=== PATIENT | male | born 1970 | race Caucasian/White ===

== ENCOUNTER 2019-04-25 15:05 | Observation (INO) | payer OTHER ==
--- NOTE | 2019-04-25 16:11 | RAD REPORT ---
EXAM DESCRIPTION: CT - Head Brain Wo Cont - 04/25/2019 3:49 pm CLINICAL HISTORY: Weakness, altered mental status, ataxic gait COMPARISON: June [address] head study is TECHNIQUE: Axial 5 mm thick images of the head were obtained without IV contrast. All CT scans are performed using dose optimization technique as appropriate and may include automated exposure control or mA/KV adjustment according to patient size. FINDINGS: No intracranial hemorrhage, mass, edema or shift of mid-line structures. No cortical edema or sulcal effacement. No acute cortical based infarction. Patient does appear to have some slight lo ss in volume since prior imaging. Ventricles have increased in proportion to this volume loss. No ronak surable chronic ischemic change in the white matter. Cerebellar vermian atrophy pattern is still pres ent. No abnormal extra-axial fluid collections. Mastoid air cells and visualized portions of the paranasal sinuses are clear. No acute bony findings. IMPRESSION: No hemorrhage, acute infarction, mass or other acute intracranial finding. Patient has shown some cerebral volume loss since 2017. Cerebellum vermian atrophy pattern has not pr ogressed. The cerebellar vermian atrophy pattern can be seen with alcohol abuse among other etiologies. Correla tion is needed with history.
[2019-04-25 16:16] LABS: Absolute Lymphocytes (CBC) 1.5 K/uL (0.7-4.9); Basophils % 0.7 % (0-1.3); Hematocrit 38.5 % (39.6-49.0); Lymphocytes % 19.8 % (15.3-44.8); MPV 8.2 fL (7.6-11.3); RBC Red Blood Cell Count 3.96 M/uL (4.33-5.43)
[2019-04-25 16:18] LABS: Protime INR 1.11
--- NOTE | 2019-04-25 16:36 | RAD REPORT ---
EXAM DESCRIPTION: RAD - Chest Single View - 04/25/2019 4:14 pm CLINICAL HISTORY: Dysphagia, history of recent strep diagnosis COMPARISON: June 2017 TECHNIQUE: AP portable chest image was obtained 1607 hour . FINDINGS: No acute lung parenchymal process. Heart and vasculature are normal. No measurable pleural effusion and no pneumothorax. Costochondral calcifications are present. No acute bone process. No ac saxman aortic findings suspected. IMPRESSION: No acute cardiopulmonary process.
[2019-04-25 16:58] LABS: ALT/SGPT 99 U/L (12-78); AST/SGOT 59 U/L (15-37); Albumin 3.6 g/dL (3.4-5.0); Alkaline Phosphatase 81 U/L (45-117); BUN Blood Urea Nitrogen 7 mg/dL (7-18); Bicarbonate 26 mmol/L (21-32); Bilirubin Direct 0.6 mg/dL (0-0.2); Bilirubin Total 1.3 mg/dL (0.2-1.0); Glucose Level 101 mg/dL (74-106); NT PRO-BNP 41 pg/mL (<125); Protein, Total 7.6 g/dL (6.4-8.2); Sodium Level 135 mmol/L (136-145); Troponin (Emerg Dept Use Only) < 0.02 ng/mL (0.0-0.045)
[2019-04-25] MEDS ORDERED: THIAMINE HCL 500 MG in NA CHLORIDE 0.9% 250 ML IV ONE (17:00)
[2019-04-25 17:19] LABS: Potassium 2.8 mmol/L (3.5-5.1)
[2019-04-25] MEDS ORDERED: NS KCL 20MEQ 1,000 ML IV ONE (17:29)
--- NOTE | 2019-04-25 17:40 | RAD REPORT ---
EXAM DESCRIPTION: MRI - Brain Wo Cont - 04/25/2019 5:12 pm CLINICAL HISTORY: ataxia,nystagmus, weakness, history of seizures COMPARISON: CT head April 25, MR brain June 2017 TECHNIQUE: Sagittal T1-weighted images were obtained along with axial PD, heavily T2-weighted and T2 -FLAIR images. Axial DWI and ADC mapping sequences were also obtained along with coronal heavily T2-w eighted images. FINDINGS: No intracranial hemorrhage, mass or acute infarction. There is no edema or shift of midlin e structures. No extra-axial fluid collections. Rodríguez-matter/white matter junction is preserved. Signa l voids are seen as a normal finding in the major intracranial vessels. The patient has cerebellar atrophy primarily in the vermis region. This vermian atrophy pattern is si milar to the comparison. More peripheral aspects of each cerebellar hemisphere show progression in vo lume loss. A vermian atrophy pattern can be seen with excessive alcohol usage. This is only 1 etiolog y. No additional signal abnormality that would indicate excessive alcohol use. Correlation can be mad e with history. Patient does have atrophy change for his age. Ventricles are in proportion. Volume lo ss has progressed since 2017. No brainstem atrophy changes. Mastoid air cells and paranasal sinuses are clear. No globe or orbital content abnormality. No sella or supra sella abnormality. IMPRESSION: No infarction, hemorrhage, mass or other acute intracranial finding. Patient has cerebral and cerebellar atrophy changes, prominent for age, and progressive from 2017. No brainstem atrophy. Cerebellar atrophy is primarily vermian in location. A primarily vermian cerebellar atrophy pattern can be seen with excessive alcohol usage. This is only 1 possible etiology. Correlation is needed wit h history.
--- NOTE | 2019-04-25 18:59 | EDPHYS ---
Physician Documentation [facility] Name: Von Francis Age: 48 yrs Sex: Male : 1970 Arrival Date: 04/25/2019 Time: 15:06 Bed 6 Private MD: John Lema ED Physician Theodore Gonzalez HPI: 04/25 18:58 This 48 yrs old Male presents to ER via Wheelchair with complaints of jr8 Weakness. 18:58 The patient presents to the emergency department with weakness of the a speech or jr8 higher order brain function problem, difficulty standing, difficult walking, a swallowing problem. Onset: The symptoms/episode began/occurred gradually, 3 week(s) ago. Context: occurred at an unknown location. Associated signs and symptoms: The patient has no apparent associated signs or symptoms. Severity of symptoms: At their worst the symptoms were moderate in the emergency department the symptoms are unchanged. Patient's baseline: Neuro: alert and fully oriented, Motor: no deficits, Ambulation: walks without assistance, Speech: normal. Current symptoms: ataxia, dysphagia . The patient has not experienced similar symptoms in the past. The patient has been recently seen by a physician:. Patient with history of chronic alcoholism. Stated that symptoms began as sore throat about 3 weeks ago. Was treated for strep throat with positive culture at that time. Stated that since then has been getting worse. Harder to talk and swallow. Now having ataxia. Came to ED because he is at the point where he can no longer walk. Historical: - Allergies: 15:16 No Known Allergies; tw2 - Home Meds: 15:16 topiramate 50 mg oral CSpX 1 cap once daily [Active]; spironolactone 25 mg Oral tab 1 tw2 tab once daily [Active]; hydralazine 10 mg Oral tab 1 tab 2 times per day [Active]; amlodipine 10 mg tab 1 tab once daily [Active]; levetiracetam 500 mg oral tab 1 tab 2 times per day [Active]; - PMHx: 15:16 Hypertension; Seizures; tw2 - PSHx: 15:16 None; tw2 - Immunization history:: Adult Immunizations. - Social history:: Smoking status: . - Ebola Screening: : Patient denies travel to an Ebola-affected area in the 21 days before illness onset. ROS: 18:58 Eyes: Negative for injury, pain, redness, and discharge, ENT: Negative for injury, jr8 pain, and discharge, Neck: Negative for injury, pain, and swelling, Cardiovascular: Negative for chest pain, palpitations, and edema, Respiratory: Negative for shortness of breath, cough, wheezing, and pleuritic chest pain, Abdomen/GI: Negative for abdominal pain, nausea, vomiting, diarrhea, and constipation, Back: Negative for injury and pain, MS/Extremity: Negative for injury and deformity, Skin: Negative for injury, rash, and discoloration. 18:58 Neuro: Positive for gait disturbance, weakness. Exam: 18:58 Eyes: Pupils equal round and reactive to light, extra-ocular motions intact. Lids and jr8 lashes normal. Conjunctiva and sclera are non-icteric and not injected. Cornea within normal limits. Periorbital areas with no swelling, redness, or edema. ENT: Nares patent. No nasal discharge, no septal abnormalities noted. Tympanic membranes are normal and external auditory canals are clear. Oropharynx with no redness, swelling, or masses, exudates, or evidence of obstruction, uvula midline. Mucous membranes moist. Neck: Trachea midline, no thyromegaly or masses palpated, and no cervical lymphadenopathy. Supple, full range of motion without nuchal rigidity, or vertebral point tenderness. No Meningismus. Cardiovascular: Regular rate and rhythm with a normal S1 and S2. No gallops, murmurs, or rubs. Normal PMI, no JVD. No pulse deficits. Respiratory: Lungs have equal breath sounds bilaterally, clear to auscultation and percussion. No rales, rhonchi or wheezes noted. No increased work of breathing, no retractions or nasal flaring. Abdomen/GI: Soft, non-tender, with normal bowel sounds. No distension or tympany. No guarding or rebound. No evidence of tenderness throughout. Back: No spinal tenderness. No costovertebral tenderness. Full range of motion. Skin: Warm, dry with normal turgor. Normal color with no rashes, no lesions, and no evidence of cellulitis. MS/ Extremity: Pulses equal, no cyanosis. Neurovascular intact. Full, normal range of motion. 18:58 Neuro: Orientation: to person, place, time \T\ situation. Mentation: is normal, Memory: is normal, immediate memory is intact, recent memory is intact, remote memory is intact, Cranial nerves: CN I not tested, CN II- XII are normal as tested, visual rabago are intact. extraocular movements are intact, Facial palsy and sensory deficits are absent. right lateral nystagmus, left lateral nystagmus, Speech is hoarse, slurred, Tongue strength is normal, Cerebellar function: dysmetria is noted on both sides, the patient is unable to track heel to spring on both sides, Motor: moves all fours, strength is 5/5 in all extremities, Sensation: no obvious gross deficits, Gait: ataxic, needs assistance, Deep tendon reflexes are 1 (trace) + in the right bicep and left bicep, 2+ (normal) in the right patellar and left patellar, seizure activity, is not displayed by the patient, Abnormal movements: resting tremor, is located in the right hand and left hand, head. Vital Signs: 15:16 BP 138 / 90; Pulse 93; Resp 17; Temp 98.5(O); Pulse Ox 99% on R/A; Weight 72.57 kg (R); tw2 Pain 0/10; 16:15 BP 132 / 88; Pulse 82; Resp 16; Pulse Ox 98% ; sv 17:30 BP 143 / 89; Pulse 90; Resp 16; Pulse Ox 99% ; sv 18:15 BP 160 / 84; Pulse 93; Resp 17; Pulse Ox 100% ; sv 19:00 BP 134 / 86; Pulse 79; Resp 18; Pulse Ox 98% ; sv 19:30 BP 134 / 86; Pulse 85; Resp 18; Temp 98.2; Pulse Ox 100% on R/A; Pain 0/10; aa1 MDM: 15:18 Patient medically screened. jr8 18:55 Data reviewed: vital signs, nurses notes, lab test result(s), EKG, radiologic studies, jr8 CT scan, MRI, plain films. Data interpreted: Pulse oximetry: on room air is 99 %. Interpretation: normal. Counseling: I had a detailed discussion with the patient and/or guardian regarding: the historical points, exam findings, and any diagnostic results supporting the discharge/admit diagnosis, lab results, radiology results, the need for further work-up and treatment in the hospital. ED course: Consulted Dr. Montano and Cuate. Both accepted and will see patient . 19:06 ED course: Discussed with patient and family that most likely diagnosis at this time jr8 based on history, exam, and imaging is that patient has Wernicke Korsakoff syndrome and will treat as such for now. Will still assess for other acute neurologic process while admitted to hospital. Family and patient happy . 04/25 15:38 Order name: Basic Metabolic Panel; Complete Time: 17:20 04/25 15:38 Order name: CBC with Diff; Complete Time: 16:23 04/25 15:38 Order name: LFT's; Complete Time: 17:20 04/25 15:38 Order name: Magnesium; Complete Time: 17:20 04/25 15:38 Order name: NT PRO-BNP; Complete Time: 17:20 04/25 15:38 Order name: PT-INR; Complete Time: 16:23 04/25 15:38 Order name: Troponin (emerg Dept Use Only); Complete Time: 17:20 04/25 15:38 Order name: XRAY Chest (1 view); Complete Time: 16:46 04/25 15:38 Order name: CT Head Brain wo Cont; Complete Time: 16:23 04/25 16:32 Order name: MRI - Brain Wo Cont; Complete Time: 18:05 04/25 17:42 Order name: ETOH Level; Complete Time: 18:28 04/25 17:49 Order name: KEPPRA (LEVETIRACETAM) EDNY 04/25 15:38 Order name: EKG; Complete Time: 15:39 04/25 15:38 Order name: Cardiac monitoring; Complete Time: 16:06 04/25 15:38 Order name: EKG - Nurse/Tech; Complete Time: 16:06 04/25 15:38 Order name: IV Saline Lock; Complete Time: 16:06 04/25 15:38 Order name: Labs collected and sent; Complete Time: 16:06 04/25 15:38 Order name: O2 Per Protocol; Complete Time: 16:06 04/25 15:38 Order name: O2 Sat Monitoring; Complete Time: 16:06 Administered Medications: 17:19 Drug: Thiamine 500 mg Route: IV; Rate: calculated rate; Site: right forearm; sg 17:40 Follow up: Response: No adverse reaction; IV Status: Completed infusion sg 18:02 Drug: NS 0.9% with KCl 20 mEq/L 1000 ml Route: IV; Rate: 500 ml/hr; Site: right sg antecubital; Disposition: 04/26 06:47 Co-signature as Attending Physician, Theodore Gonzalez MD I agree with the assessment and jessie plan of care. Disposition: 04/25/19 18:58 Hospitalization ordered by Chester Cuello for Inpatient Admission. Preliminary diagnosis is Wernicke's encephalopathy. - Bed requested for Telemetry/MedSurg (Inpatient). - Status is Inpatient Admission. aa1 - Condition is Stable. - Problem is new. - Symptoms are unchanged. UTI on Admission? No Signatures: Dispatcher [employer] EDMS Tana Hollingsworth Steven, RN RN Maryjo Vizcarra RN RN aa Theodore Gonzalez MD MD cha Roszak, Josh, PA PA jr8 Helen Lewis RN RN tw2 Corrections: (The following items were deleted from the chart) 04/25 18:59 18:58 Hospitalization Ordered by Chester Cuello MD for Inpatient Admission. Preliminary bd diagnosis is Wernicke's encephalopathy. Bed requested for Telemetry/MedSurg (Inpatient). Status is Inpatient Admission. Condition is Stable. Problem is new. Symptoms are unchanged. UTI on Admission? No. jr8 20:28 18:59 04/25/2019 18:58 Hospitalization Ordered by Chester Cuello MD for Inpatient aa1 Admission. Preliminary diagnosis is Wernicke's encephalopathy. Bed requested for Telemetry/MedSurg (Inpatient). Status is Inpatient Admission. Condition is Stable. Problem is new. Symptoms are unchanged. UTI on Admission? No. bd
--- NOTE | 2019-04-25 18:59 | ER ---
Nurse's Notes [facility] Name: Von Francis Age: 48 yrs Sex: Male : 1970 Arrival Date: 04/25/2019 Time: 15:06 Bed 6 Private MD: John Lema Diagnosis: Wernicke's encephalopathy Presentation: 04/25 15:12 Presenting complaint: sister states "Dr. Zhang wanted him to come over here today tw2 because he has progressively gotten weaker since he treated him last Wednesday for strep throat, he normally stands and walks with a walker but since last week he has felt weaker and he just cant even stand". Transition of care: patient was not received from another setting of care. Onset of symptoms was April 25, 2019. Risk Assessment: Do you want to hurt yourself or someone else? Patient reports no desire to harm self or others. Initial Sepsis Screen: Does the patient meet any 2 criteria? No. Patient's initial sepsis screen is negative. Does the patient have a suspected source of infection? No. Patient's initial sepsis screen is negative. Care prior to arrival: None. 15:12 Method Of Arrival: Wheelchair tw2 15:12 Acuity: WEI 3 tw2 Triage Assessment: 15:16 General: Appears in no apparent distress. Behavior is calm, cooperative, appropriate tw2 for age. Pain: Denies pain. Historical: - Allergies: 15:16 No Known Allergies; tw2 - Home Meds: 15:16 topiramate 50 mg oral CSpX 1 cap once daily [Active]; spironolactone 25 mg Oral tab 1 tw2 tab once daily [Active]; hydralazine 10 mg Oral tab 1 tab 2 times per day [Active]; amlodipine 10 mg tab 1 tab once daily [Active]; levetiracetam 500 mg oral tab 1 tab 2 times per day [Active]; - PMHx: 15:16 Hypertension; Seizures; tw2 - PSHx: 15:16 None; tw2 - Immunization history:: Adult Immunizations. - Social history:: Smoking status: . - Ebola Screening: : Patient denies travel to an Ebola-affected area in the 21 days before illness onset. Screenin:00 Abuse screen: Denies threats or abuse. Denies injuries from another. Nutritional sg screening: No deficits noted. Tuberculosis screening: No symptoms or risk factors identified. Never had TB. Fall Risk None identified. Assessment: 16:04 General: Appears in no apparent distress. well groomed, well developed, well nourished, sg Behavior is calm, cooperative, appropriate for age. Pain: Denies pain. Neuro: Level of Consciousness is awake, alert, obeys commands, Oriented to person, place, time, situation, Valve Mechanic are equal bilaterally Moves all extremities. Full function Gait is steady, Speech is normal, Facial symmetry appears normal, Pupils are PERRLA, voice is hoarse . Reports weakness pt reports feeling bad. Cardiovascular: Capillary refill is brisk in bilateral fingers Patient's skin is warm and dry. Chest pain is denied. Respiratory: Airway is patent Respiratory effort is even, unlabored, Respiratory pattern is regular, symmetrical. GI: Abdomen is flat, non-distended. : No signs and/or symptoms were reported regarding the genitourinary system. EENT: No signs and/or symptoms were reported regarding the EENT system. Derm: Skin is pink, warm \\T\\ dry. Musculoskeletal: Circulation, motion, and sensation intact. Range of motion: intact in all extremities. 17:16 Reassessment: pt remains off the unit in MRI at this time, family remains in exam room. sg 18:10 Reassessment: Patient appears in no apparent distress at this time. Patient and/or sg family updated on plan of care and expected duration. Pain level reassessed. Patient is alert, oriented x 3, equal unlabored respirations, skin warm/dry/pink. 18:50 Reassessment: Patient appears in no apparent distress at this time. Patient and/or sg family updated on plan of care and expected duration. Pain level reassessed. outside lab contacted, they report a keppra level has been obtained and is pending results, pt updated will continue to monitor. 19:30 Reassessment: Patient appears in no apparent distress at this time. Patient and/or aa1 family updated on plan of care and expected duration. Pain level reassessed. Patient is alert, oriented x 3, equal unlabored respirations, skin warm/dry/pink. Awaiting admission to floor. Denies pain at this time. Resting quietly. 19:55 Reassessment: Patient appears in no apparent distress at this time. Patient is alert, aa1 oriented x 3, equal unlabored respirations, skin warm/dry/pink. Report given to MARIELA Umanzor on 4th floor. Vital Signs: 15:16 BP 138 / 90; Pulse 93; Resp 17; Temp 98.5(O); Pulse Ox 99% on R/A; Weight 72.57 kg (R); tw2 Pain 0/10; 16:15 BP 132 / 88; Pulse 82; Resp 16; Pulse Ox 98% ; sv 17:30 BP 143 / 89; Pulse 90; Resp 16; Pulse Ox 99% ; sv 18:15 BP 160 / 84; Pulse 93; Resp 17; Pulse Ox 100% ; sv 19:00 BP 134 / 86; Pulse 79; Resp 18; Pulse Ox 98% ; sv 19:30 BP 134 / 86; Pulse 85; Resp 18; Temp 98.2; Pulse Ox 100% on R/A; Pain 0/10; aa1 ED Course: 15:06 Patient arrived in ED. mr 15:06 John eLma MD is Private Physician. mr 15:13 Triage completed. tw2 15:14 Markie Ferrer PA is PHCP. jr8 15:14 Theodore Gonzalez MD is Attending Physician. jr8 15:16 Arm band placed on. tw2 15:50 CT Head Brain wo Cont In Process Unspecified. EDMS 16:00 Initial lab(s) drawn, by me, sent to lab. Inserted saline lock: 20 gauge in right sg forearm, using aseptic technique. Blood collected. 16:05 Patient has correct armband on for positive identification. Placed in gown. Bed in low sg position. Side rails up X2. Pulse ox on. NIBP on. Head of bed elevated. 16:13 EKG done, by automated equipment engineer technician. reviewed by Markie PEACOCK. sm3 16:14 XRAY Chest (1 view) In Process Unspecified. EDMS 17:04 MRI - Brain Wo Cont In Process Unspecified. EDMS 17:22 Mendez Corrales, MARIELA is Primary Nurse. sg 17:22 MRI completed. Patient tolerated well. em2 17:25 Patient moved back from MRI. em2 18:18 KEPPRA (LEVETIRACETAM) Sent. hb 18:56 Chester Cuello MD is Hospitalizing Provider. jr8 19:00 Report received from Mendez Corrales RN. aa1 20:28 No provider procedures requiring assistance completed. Patient admitted, IV remains in aa1 place. 20:45 Inserted saline lock: 20 gauge in left antecubital area, using aseptic technique. oe Administered Medications: 17:19 Drug: Thiamine 500 mg Route: IV; Rate: calculated rate; Site: right forearm; sg 17:40 Follow up: Response: No adverse reaction; IV Status: Completed infusion sg 18:02 Drug: NS 0.9% with KCl 20 mEq/L 1000 ml Route: IV; Rate: 500 ml/hr; Site: right sg antecubital; Outcome: 18:58 Decision to Hospitalize by Provider. jr8 20:28 Admitted to Tele accompanied by tech, via wheelchair, room 415, with chart, Report aa1 called to MARIELA Umanzor 20:28 Condition: stable 20:28 Instructed on the need for admit, Demonstrated understanding of instructions. 20:28 Patient left the ED. aa1 Signatures: Dispatcher [employer] EDMS Katy Mills RN RN Mendez Corrales RN RN Maryjo Vizcarra RN RN aa1 Price Isabel Ferrer, Markie, PA PA jr8 Jose Damian 2 Kellie Esquivel RN RN Helen Lewis RN RN 2 Shaka Butler Shakira 3 Corrections: (The following items were deleted from the chart) 19:16 16:04 Neuro: Level of Consciousness is awake, alert, obeys commands, Oriented to sg person, place, time, situation, Valve Mechanic are equal bilaterally Moves all extremities. Full function Gait is steady, Speech is normal, Facial symmetry appears normal, Pupils are PERRLA, Reports weakness pt reports feeling bad sg
[2019-04-25] MEDS: ATORVASTATIN 20 MG TAB PO SCH (21:12)
[2019-04-25] MEDS ORDERED: ONDANSETRON 4 MG/2 ML VIAL IV PRN (21:12)
[2019-04-25] MEDS ORDERED: ACETAMINOPHEN 500 MG TAB PO PRN (21:12)
[2019-04-25] MEDS ORDERED: FLUMAZENIL 0.1 MG/ML (5 mL VIAL) IV PRN (21:12)
[2019-04-25 22:02] VITALS: BMI 23.8
[2019-04-25] MEDS: KCL 20 MEQ/100 mL IVPB 20 MEQ/100 ML BAG IV SCH (22:21)
[2019-04-25] MEDS: NA CHLORIDE 0.9% 1,000 ML IV SCH (22:21)
[2019-04-25 22:47] LABS: Urine Appearance TURBID; Urine Bilirubin NEGATIVE (NEG); Urine Blood NEGATIVE (NEG); Urine Color YELLOW; Urine Glucose NEGATIVE (NEG); Urine Protein NEGATIVE (NEG)
[2019-04-25 23:22] LABS: Urine Microscopic Reflex ORDER UMIC
[2019-04-25 23:23] LABS: Urine Amorphous Sediment 4+ /HPF (NONE SEEN); Urine Bacteria <20 /HPF (NONE SEEN); Urine Culture Reflex Order NOT NEEDED; Urine RBC NONE SEEN /HPF (NONE SEEN)
[2019-04-26] MEDS: KCL 20 MEQ/100 mL IVPB 20 MEQ/100 ML BAG IV SCH ×3 (01:05→08:15)
--- NOTE | 2019-04-26 04:03 | HP ---
Date of Admission: 04/25/2019 Chief Complaint: Ataxia. Primary Care Physician: Dr. Causey. Consultants: Dr. Montano with Neurology. History Of Present Illness: Patient is a 48-year-old male with past medical history of hypertension, hyperlipidemia, seizure disorder, chronic alcohol abuse , who has been becoming progressively weak and ataxic along with worsening tremors. Patient continues to drink. Last drink was yesterday. He had a mixed drink. Patient states that since he was diagnosed with strep throat took antibiotics, he has been progressively worsening. He is unable to walk using a walker due to his severe ataxia. Patient's symptoms are constant, moderate, progressively worsening. In the ER, his workup revealed a low potassium level of 2.8. His liver function was abnormal. White blood cell count was normal. His alcohol level was less than 3. CT scan of the head and MRI of the brain showed severe atrophy of the cerebellum in the vermian location consistent with excessive alcohol usage. No acute stroke was seen. ER contacted Dr. Montano, who recommended further observation and treatment. When seen in the ER, he was awake, alert, oriented, in some mild distress. Past Medical History: Hypertension, hyperlipidemia, seizure disorder, and chronic alcohol use. Past Surgical History: None. Allergies: NO KNOWN DRUG ALLERGIES. Medications: List reviewed. Patient takes topiramate, hydralazine, amlodipine , and Keppra. Social History: Patient smokes every now and then, not a daily smoker. Patient drinks mixed drinks daily. Last drink was last night. No illicit drug use. Lives at home by himself. Does require a walker for ambulation. Family History: Mother had heart disease, diabetes, and kidney disease. Review of Systems: Nine point system reviewed, negative except as per HPI. Physical Examination: Vital Signs: Stable. Afebrile. GENERAL: Awake, alert, oriented x3, in some mild distress, ill-appearing male, tremulous. HEENT: Normocephalic, atraumatic. PERRLA. EOMI. Moist mucous membranes. Oropharynx is clear. Conjunctivae are anicteric. Patient does have nystagmus. CV: S1, S2. Regular rate and rhythm. Peripheral pulses present. RESPIRATORY: Moving air well bilaterally. No wheezing or stridor. No use of accessory muscles. GASTROINTESTINAL: Abdomen is soft, nontender, nondistended. Positive bowel sounds. Extremities: No clubbing, cyanosis, or edema. No calf tenderness. NEURO: Cranial nerves 3 through 12 intact grossly. No focal neurological deficit. Strength is 5/5 bilateral upper and lower extremities. Sensation intact to light touch. Patient does have an ataxia. Omubnl-wo-cgfs is abnormal. Vfwp-yp-ghze is able to be completed; however, has severe tremors. Skin: No rashes. Patient does have some abrasions on the left lower extremity. Laboratory Data: Alcohol level less than 3. Sodium 135, potassium 2.8, chloride 101, CO2 of 26, BUN 7, creatinine 0.83, glucose 101, calcium 9.3, magnesium 2. Total bilirubin 1.3, AST 59, ALT 99. Troponin less than 0.02. INR 1.11. WBC 7.7, H and H 13.5 and 38.5, platelets 216, neutrophils 67%. Imaging Studies: Chest x-ray personally reviewed shows no acute cardiopulmonary process. Head CT scan shows no hemorrhage, acute infarction, mass, or other acute intracranial finding. Has cerebral volume loss since 2017 , cerebellum vermian atrophy pattern has not progressed. MRI of the brain shows no infarction, hemorrhage, mass, or acute intracranial finding. Patient has cerebral and cerebellar atrophy prominent for age and progressive from 2017. No brainstem atrophy. Assessment And Plan: 48-year-old male with: 1. Ataxia, rule out cerebrovascular accident. MRI of the brain does not show any acute stroke. 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 We will place on bedrest, fall precautions, and seizure precautions. Dr. Montano with Neurology has been consulted. We will start on stroke guidelines aspirin, statin. Obtain carotid artery ultrasound and echocardiogram. Patient not at baseline per family. 2. Alcohol dependence. We will place on Ativan p.r.n., use [facility] protocol for monitoring symptoms. We will start on banana bag with thiamine and folate. 3. Essential hypertension. We will resume home medications as appropriate. 4. Mixed hyperlipidemia. Continue statin. 5. History of seizure disorder. We will place on seizure precautions. Check Keppra level. 6. Nicotine dependence with cigarette smoking, counseled. Plan: Admit patient to Med-Surg, place as observation. Patient will need placement. We will consult social work. SA/MODL Voice ID: [id number] MTDD
[2019-04-26 04:37] LABS: Absolute Lymphocytes (CBC) 1.5 K/uL (0.7-4.9); Basophils % 0.4 % (0-1.3); Lymphocytes % 22.5 % (15.3-44.8); MPV 8.5 fL (7.6-11.3); RBC Red Blood Cell Count 3.68 M/uL (4.33-5.43)
[2019-04-26 05:07] LABS: ALT/SGPT 75 U/L (12-78); AST/SGOT 40 U/L (15-37); Alkaline Phosphatase 70 U/L (45-117); BUN Blood Urea Nitrogen 7 mg/dL (7-18); Bicarbonate 24 mmol/L (21-32); Bilirubin Total 1.3 mg/dL (0.2-1.0); Glucose Level 88 mg/dL (74-106); Magnesium 1.9 mg/dL (1.8-2.4); Phosphorus 2.1 mg/dL (2.5-4.9); Potassium 3.1 mmol/L (3.5-5.1); Protein, Total 6.4 g/dL (6.4-8.2); Sodium Level 138 mmol/L (136-145)
--- NOTE | 2019-04-26 06:53 | EKG ---
Test Date: 2019-04-25 Test Time: 15:56:43 Auto Electrician: PRICILA MEASUREMENT RESULTS: Intervals: Rate: 86 NH: 122 QRSD: 92 QT: 406 QTc: 485 [place]: P: 60 NH: 122 QRS: 60 T: 8 INTERPRETIVE STATEMENTS: Normal sinus rhythm ST & T wave abnormality, consider inferior ischemia Abnormal ECG Compared to ECG 08/18/2015 20:19:06 ST (T wave) deviation now present Possible ischemia now present Sinus tachycardia no longer present T-wave abnormality no longer present Electronically Signed On 04-26-19 06:53:07 CDT by Lb Bocanegra
[2019-04-26] MEDS: ASPIRIN EC 81 MG TAB PO SCH (08:15)
[2019-04-26] MEDS: ENOXAPARIN 40 MG/0.4 ML SQ SCH (08:15)
--- NOTE | 2019-04-26 08:41 | RAD REPORT ---
EXAM DESCRIPTION: USCarotid Artery Ysshrfdgf47/15/2019 10:22 pm CLINICAL HISTORY: CVA COMPARISON: None FINDINGS: The velocity of the right internal carotid artery equals 61 cm/sec. The right ICA/CCA rati o 1 The velocity of the left internal carotid artery equals 59 cm/sec. The left ICA/CCA ratio 0.8 Plaque is not visualized within the carotid arteries The vertebral arteries demonstrate antegrade flow IMPRESSION: Unremarkable exam NASCET criteria used. Mild 0-49% stenosis Moderate 50-69% stenosis Severe 70-99% stenosis
[2019-04-26] MEDS: FOLIC ACID 1 MG, MULTIVITAMINS INJ 10 ML, THIAMINE HCL 100 MG in NA CHLORIDE 0.9% 1,000 ML IV SCH (09:45)
[2019-04-26] MEDS: levETIRAcetam 500 MG TAB PO SCH ×3 (09:46→21:10)
[2019-04-26] MEDS: NA CHLORIDE 0.9% 1,000 ML IV SCH ×2 (10:32→21:08)
[2019-04-26] MEDS: HYDRALAZINE HCL 10 MG TABLET PO SCH ×2 (13:47→21:10)
--- NOTE | 2019-04-26 18:53 | PN ---
Date of Progress Note: 04/26/2019 Subjective: Patient is seen and examined. Chart reviewed and case discussed with RN and Dr. Montano. The patient still having tremors, is ataxic. Medications list reviewed. Physical Examination: Vital Signs: Temperature 97.6, heart rate 77, blood pressure 124/73, respirations 18, O2 99% on room air. General: Awake, alert, oriented x3. No acute distress. CV: S1, S2. Regular rate and rhythm. Peripheral pulses present. Respiratory: Moving air well bilaterally. No wheezing or stridor. Gastrointestinal: Abdomen is soft, nontender, nondistended. Positive bowel sounds. Extremities: No clubbing, cyanosis, or edema. Neuro: Strength is symmetric in bilateral upper and lower extremities. The patient has difficulty with hzrkqt-vu-oyma. Has resting tremors. Skin: No rashes. Normal skin turgor. Laboratory Data: Sodium 138, potassium 3.1, chloride 107, CO2 24, BUN 7, creatinine 0.74, glucose 88, calcium 8.3, phosphorus 2.1, magnesium 1.9. WBC 6.5, H and H 12.6 and 36, platelets 195, neutrophils 64%. Carotid artery ultrasound shows no significant plaque, unremarkable exam. Assessment And Plan: 1. A 48-year-old male with ataxia, cerebrovascular accident has been ruled out. MRI of the brain is negative for acute stroke. He does have significant cerebellar and cerebral atrophy related to Wernicke-Korsakoff syndrome. I spoke with Dr. Montano, who recommends continuing multivitamins. Patient will need physical therapy and to be taught to transfer to wheelchair, not stable for ambulation. Continue with fall precautions and seizure precautions. Carotid artery ultrasound is negative. Echocardiogram is pending. 2. Alcohol dependence. Continue with Ativan p.r.n. We will monitor for signs of withdrawal using CIWA protocol. Continue with multivitamins including thiamine and folate. 3. Essential hypertension, stable. Continue home medications. 4. Mixed hyperlipidemia. Continue statin. 5. History of seizure disorder. Continue Keppra. Keppra level is still pending as a send out lab. 6. Nicotine dependence with cigarette smoking, counseled. Plan: Discharge planning, we will contact family. Unclear how accurate patient 's statements are due to confabulation as part of Wernicke-Korsakoff syndrome. This is irreversible. This will be patient's chronic state going forward. He will need assistance with activities of daily living and getting around, will likely need a wheelchair or walker. We will have PT and speech therapy evaluation, occupation therapy evaluation. ADDENDUM 13:48 Spoke at length with sister and mother. Thoroughly explained disease process, the irreversibility of it and plan going forward beginning with etoh cessation. Family and pt initially willing to go thru detox and then physical therapy and rehab. They do not want him to go to a facility out of town. Sister states she will take care of him at her house as she has done so in the past. /RAFFY Voice ID: [id number] Report ID: [id number] MTDD
[2019-04-26] MEDS ORDERED: POTASSIUM CL SA 10 MEQ TAB PO ONE (21:00)
[2019-04-26] MEDS: ATORVASTATIN 20 MG TAB PO SCH (21:10)
[2019-04-26] MEDS: TOPIRAMATE 25 MG TAB PO SCH (21:10)
--- NOTE | 2019-04-27 02:04 | CON ---
Reason For Consultation: Consultation called because of Wernicke encephalopathy and Korsakoff psycho sis. History Of Present Illness: Mr. Francis is a 48-year-old patient with history of multiple medical pr oblems including hypertension, dyslipidemia, epilepsy, and long-standing chronic alcohol abuse and pe r the patient with episodes of alcohol withdrawal seizures several years ago. The patient admits to drinking perhaps 18 up to 20 beers on a daily basis and has had progressive loss of gait and balance coordination and was forced to use a walker due to his unsteady gait. It is unclear why the patient actually came in more recently because he has had a progressive loss of strength and incoordination m uch longer than a few weeks likely to the extent of the years. In any event, he is unable to ambulat e with a walker and has a very high risk of falling because of very unsteady gait. His imaging of th e brain identified vermian cerebellar atrophy in addition to cerebellar hemispheric atrophy that is o ut of proportion to atrophy in the rest of the brain. However, it should be noted that while the pat ient did have the CT scan showing the prominence of atrophy, the radiologist did not believe it was m uch more significant compared to 2017 but that the cerebral volume loss had progressed since 2017, an d the pattern again was consistent with chronic alcohol use. His brain MRI also showed significant c erebellar vermian atrophy again consistent with chronic alcohol use and it should be noted that the a trophy in the cerebellum and cerebrum were felt to be progressive from 2017 and there was no signific ant change in brainstem atrophy. There was no acute ischemic or hemorrhagic change. The study did n ot comment on potential mammillary body volume loss. Past Medical History: As indicated. Past Surgical History: None. Allergies: NO KNOWN DRUG ALLERGIES. Current Medications: At home, Keppra, amlodipine, hydralazine, and topiramate. Social History: Patient again drinks up to potentially 16 to 18 beers on a daily basis and does smok e cigarettes. Denies IV drugs and marijuana. He still lives alone but ambulates with a walker and i s very unsteady. Family History: Positive for diabetes and kidney disease in mother. Review of Systems: He admits to the issues with his balance, coordination, and gait for many years. Denies any recent f naima or chills, any myalgias, arthralgias, rash, headache, weight change, or psychiatric complaints. Physical Examination: Vital Signs: Blood pressure 137/81, pulse 83, respiratory rate 16, temperature 97.6, oxygen saturati on 95% on room air, weight 161 pounds, height 5 feet 9 inches. General: Mr. Francis is resting in bed. HEENT: He is normocephalic, atraumatic. Neurologic: He does have a head titubation-type tremor and a flexion-extension tremor in the upper e xtremities. He does not have any at rest nystagmus and his face is symmetric. His cranial nerves do not show any focal deficits. Motor examination of upper extremities show no focal weakness on the l eft or right side on both upper and lower extremities. Sensory examination reveals a stocking-glove loss to light touch and temperature. Reflexes are symmetric in upper and lower extremities. Coordin ation: He has mild dysmetria in the upper and lower extremities and in the lower extremity in terms of czrzhw-xr-gdmq and xsje-mr-mcnb. His gait is very wide based and ataxic. It should be noted that the patient reports having a tremor that has been present most of his life and that tremor is signif icantly improved using alcohol. He reports that this is part of the reason why he actually has been drinking alcohol heavily. Laboratory Studies: Complete blood count with differential essentially unremarkable. White blood ce ll count 6.5, hemoglobin 12.6, hematocrit 36, platelets are 105. Coagulation panel show INR 1.1. Ch emistries are initially remarkable for potassium of 2.8, now corrected at 3.5. Sodium is now 138. L iver function studies show elevated AST 59, ALT 99, alkaline phosphatase 81, and his total bilirubin 1.3. Urinalysis shows 4+ amorphous sediment. Toxicology shows serum alcohol level is less than 3. Carotid artery ultrasound shows an unremarkable study. Assessment: Mr. Francis is a 48-year-old patient who had Korsakoff syndrome and likely has low tali ine level, longstanding. He also has marked vermian cerebellar atrophy consistent with very long his tory of heavy alcohol use and a very ataxic gait. Plan: 1.The patient should be on high-dose thiamine and folic acid. However, it is unlikely to help him r ecover his lost coordination, balance, and gait. He will have axial instability lifelong. 2.He should be in an alcohol treatment program. This is for assistance with cessation. 3.He is to continue on Keppra. His history of seizures likely is related to alcohol withdrawal and an EEG may be helpful in characterizing the nature of his epilepsy. 4.He was counseled on the importance of stopping cigarettes and alcohol use. Once discharged, tamara lovelace should be in a facility where he can get therapy to assist with his balance and coordination and h is use of a walker, again in a facility that can help with his alcohol cessation. DIANA Voice ID: [id number] Report ID: [id number]
[2019-04-27 06:13] LABS: BUN Blood Urea Nitrogen 5 mg/dL (7-18); Bicarbonate 22 mmol/L (21-32); Glucose Level 93 mg/dL (74-106); Potassium 3.6 mmol/L (3.5-5.1); Sodium Level 141 mmol/L (136-145)
[2019-04-27] MEDS: NA CHLORIDE 0.9% 1,000 ML IV SCH (06:38)
[2019-04-27] MEDS ORDERED: POTASSIUM CL SA 10 MEQ TAB PO ONE (08:00)
[2019-04-27] MEDS: ENOXAPARIN 40 MG/0.4 ML SQ SCH (08:27)
[2019-04-27] MEDS: HYDRALAZINE HCL 10 MG TABLET PO SCH (08:28)
[2019-04-27] MEDS: levETIRAcetam 500 MG TAB PO SCH (08:29)
[2019-04-27] MEDS: ASPIRIN EC 81 MG TAB PO SCH (08:29)
[2019-04-27] MEDS: TOPIRAMATE 25 MG TAB PO SCH (08:29)
[2019-04-27] MEDS ORDERED: SPIRONOLACTONE 25 MG TABLET PO SCH (09:00)
[2019-04-27] MEDS ORDERED: AMLODIPINE 10 MG TAB PO SCH (09:00)
[2019-04-27 09:24] VITALS: O2SAT 99
[2019-04-27] MEDS: FOLIC ACID 1 MG, MULTIVITAMINS INJ 10 ML, THIAMINE HCL 100 MG in NA CHLORIDE 0.9% 1,000 ML IV SCH (09:34)
[2019-04-27 12:16] VITALS: BP 126/56; TEMP 97.6
--- NOTE | 2019-04-28 10:05 | DS ---
Date of Discharge: 04/27/2019 Consultants: Dr. Montano with Neurology. Admitting Diagnoses: 1.Ataxia. 2.Alcohol dependence. 3.Essential hypertension. 4.Mixed hyperlipidemia. 5.History of seizure disorder. 6.Nicotine dependence with cigarette smoking. Discharge Diagnoses: 1.Wernicke-Korsakoff syndrome. 2.Ataxia secondary to above. Cerebrovascular accident ruled out. 3.Alcohol dependence, counseled. Patient refuses detox and rehab. 4.Essential hypertension, stable. 5.Mixed hyperlipidemia, stable. 6.History of seizure disorder, stable on Keppra. 7.Nicotine dependence with cigarette smoking continuous without complications counseled. 8.Hoarseness. Hospital Course: Patient is a 48-year-old male with past medical history of hypertension, hyperlipid emia, seizure disorder, chronic alcohol use for several years, becoming progressively weak and ataxic along with hoarse voice. Patient has a longstanding history of drinking heavily, also has resting t remor. Patient has been progressively worse with his ataxia recently in the past couple of weeks, th erefore was brought into the ER. He was started on IV fluids with multivitamins. His CT scan of the head showed severe atrophy of the cerebellum and cerebrum. MRI of the brain was done to rule out CV A, showed severe atrophy in the cerebellum in the vermian location consistent with excessive alcohol usage. No comment was made on the mammillary bodies. No stroke was seen. Dr. Montano with Neurolo gy was consulted. The patient worked with PT. He was able to ambulate with a walker. I had a long discussion with his sister and his mother as well as the patient regarding cessation of alcohol and t obacco use. They voiced understanding. Initially, patient was receptive to going to alcohol detox a nd rehab however later declined as this is voluntary. This is on a voluntary basis. Patient was als o given option of going to [facility] for physical therapy, however, per family and patient did not wa nt to be away from the local area. The patient states he has done physical therapy at home previousl y and has the equipment. We will try to set up home health with PT for patient. Family and the kristal ent understand that his symptoms are permanent and that he will have lifelong axial instability. Pat ient will also need continued physical therapy and occupational therapy to help him assist to adjust his status. Patient will also need to follow up with ENT as an outpatient for his hoarseness of his voice. May have possible laryngeal cancer due to his chronic alcohol use. Patient was then discharg ed to his sister's home as he is no longer safe to go home by himself and also refused physical thera py, SNF placement. Condition fair. Medications: As per medication reconciliation list. Followup: Follow up with primary care physician in 2 to 3 days. Follow up with neurologist in 2 wee ks. The patient needs to establish care with ENT to evaluate hoarseness to rule out laryngeal cancer . Return to ER for worsening condition. Diet: Regular. Activity: Fall precautions. Ambulate with assist using walker. Physical Examination: General: Awake, alert, oriented x3, not in any acute distress. CV: S1, S2. Respiratory: Moving air well bilaterally. Abdomen: Abdomen is soft, nontender, nondistended. Positive bowel sounds. Extremities: No clubbing, cyanosis, edema. Neuro: Patient has tremor, worse with movement. Gait instability. SA/MODL Voice ID: [id number] Report ID: [id number]
--- OUTSIDE RECORDS SUMMARY | 2019-05-20 22:09 | XMS REPORT | Summary of Care ---
:1970 Author Organization [facility] Address [address] [place] [id number] Care Team Providers Name Role Phone Elisha Causey MD Primary Care Provider Reason for Visit Reason Comments Refill Request Encounter Details Date Type Department Care Team Description 03/25/2019 Refill [facility] Sang Segovia MD Refill Request Neurology-[address] [place] [id number] [facility] [address] [place] [address] [phone] Allergies No Known Allergiesdocumented as of this encounter (statuses as of 03/27/2019) Medications Medication Sig Dispensed Refills Start Date End Date Status foLIC acid (FOLATE) Take 1 Tab by 30 Tab 2 08/17/2015 Active 1 mg tablet mouth daily. multivitamin tablet Take 1 Tab by 30 Tab 2 08/17/2015 Active mouth daily. thiamine (VITAMIN Take 1 Tab by 30 Tab 2 08/26/2015 Active B1) 100 mg tablet mouth daily. hydralAZINE 25 mg Take 25 mg by 0 Active tablet mouth every 6 (six) hours. amLODIPine 10 mg Take 10 mg by 0 Active tablet mouth daily. simvastatin 5 mg Take 5 mg by 0 Active tablet mouth at bedtime. levETIRAcetam 500 mg Take 500 mg 0 Active tablet by mouth 2 (two) times daily. TOPIRAMATE 50 mg TAKE 1 TABLET 60 tablet 1 03/27/2019 Active tabletIndications: BY MOUTH Essential tremor TWICE A DAY TOPIRAMATE 50 mg TAKE 1 TABLET 60 tablet 1 02/24/2019 03/25/2019 Discontinued tabletIndications: BY MOUTH Essential tremor TWICE A DAY documented as of this encounter (statuses as of 03/27/2019) Active Problems Problem Noted Date Seizure 08/13/2015 documented as of this encounter (statuses as of 03/27/2019) Social History Tobacco Use Types Packs/Day Years Used Date Never Smoker Smokeless Tobacco: Current User Sex Assigned at Date Recorded Not on file Job Start Date Occupation Industry Not on file Not on file Not on file Travel History Travel Start Travel End No recent travel history available. documented as of this encounter Last Filed Vital Signs Not on filedocumented in this encounter Plan of Treatment Health Maintenance Due Date Last Done Comments DTaP,Tdap,and Td Vaccines (1 - 1988 Tdap) INFLUENZA VACCINE (#1) 2019 PNEUMOCOCCAL 0-64 YEARS COMBINED Aged Out No longer eligible based on SERIES patient's age to complete this topic documented as of this encounter Results Not on filedocumented in this encounter Visit Diagnoses Diagnosis Essential tremor Essential and other specified forms of tremor documented in this encounter Insurance Payer Benefit Plan / Subscriber ID Effective Dates Phone Address Type Group MEDICARE MEDICARE PART xxxxxxxxxxx 2018-Jeny [phone] [address] Medicare [address] & [address] t [id number] [place] [id number] [facility] MEDICAID OF xxxxxxxxx 2015-Jeny [phone] [address] Medicaid [place] t [id number] [place] [address] documented as of this encounter
--- OUTSIDE RECORDS SUMMARY | 2019-05-20 22:09 | XMS REPORT | Summary of Care ---
:1970 Author Organization [facility] Address [address] [place] [id number] Care Team Providers Name Role Phone Elisha Causey MD Primary Care Provider Reason for Visit Reason Comments Refill Request Encounter Details Date Type Department Care Team Description 02/24/2019 Refill [facility] Sang Segovia MD Refill Request Neurology-[address] [place] [id number] [facility] [address] [place] [address] [phone] Allergies No Known Allergiesdocumented as of this encounter (statuses as of 02/24/2019) Medications Medication Sig Dispensed Refills Start Date [...] TAKE 1 TABLET 60 tablet 1 02/24/2019 Active tabletIndications: BY MOUTH Essential tremor TWICE A DAY TOPIRAMATE 50 mg TAKE 1 TABLET 60 tablet 1 01/26/2019 02/24/2019 Discontinued tabletIndications: BY MOUTH Essential tremor TWICE A DAY documented as of this encounter (statuses as of 02/24/2019) Active Problems Problem Noted Date Seizure 08/13/2015 documented as of this encounter (statuses as of 02/24/2019) Social History Tobacco Use Types Packs/Day Years [...] Date Last Done Comments DTaP,Tdap,and Td Vaccines (1988 Tdap) INFLUENZA VACCINE (Retired 03/12/2019 version) PNEUMOCOCCAL 0-64 YEARS COMBINED Aged Out No [...] BOX Medicare A & B t 2 [id number] [place] [address] [employer] MEDICA[employer] OF xxxxxxxxx 2015-Jeny [phone] [address] Medicaid [place] t 0 [id number] [place] [address] documented as of this encounter
--- OUTSIDE RECORDS SUMMARY | 2019-05-20 22:09 | XMS REPORT ---
:1970 [facility] Address [address] [place] [address] [place] [address] Care Team Providers Name Role Phone Unavailable Unavailable Unavailable Problems This patient has no known problems. Allergies, Adverse Reactions, Alerts This patient has no known allergies or adverse reactions. Medications This patient has no known medications.
== END 2019-04-27 13:44 | disposition home or self-care (01) ==
LOC: ER 15:05 → ERHOLD 17:40 → 4TH 19:48
PROVIDERS: ADMIT Family Medicine; ATTEND Family Medicine
DX: F10.259 Alcohol dependence with alcohol-induced psychotic disorder, unspecified (principal); R27.0 Ataxia, unspecified; I10 Essential (primary) hypertension; E78.2 Mixed hyperlipidemia; F17.210 Nicotine dependence, cigarettes, uncomplicated; R49.0 Dysphonia; G40.909 Epilepsy, unspecified, not intractable, without status epilepticus
CPT/HCPCS: 96365; 93005; 85025 ×2; 80048 ×2; 36415 ×3; 80320; 83735 ×2; 84100; 84132; 85610; 80076; 85652; 84484; 80053; 80177; 83880; 70450; 71045; 93880; 70551; 92610; 97116 ×2; 97161; 97530 ×3; 94760 ×4; 99285; J3411 ×2; J1650 ×2; J7030 ×5; G0378 ×4; 81003; 81015

== ENCOUNTER 2021-08-20 16:01 | Observation (INO) | payer OTHER ==
--- OUTSIDE RECORDS SUMMARY | 2021-08-20 16:06 | XMS REPORT | Continuity of Care Document ---
:1970 Author Organization [facility] t Address [address] [place] [address] Care Team Providers Name Role Phone Juliette FAULKNER, Gene Attending Clinician Payers Payer Name Policy Type Policy Number Effective Date Expiration Date S ource Problems Condition Condition Condition Status Onset Resolution Last Treating Co mments Source Name Details Category Date Date Treatment Clinician Date Seizure Seizure Disease Active Univers 08-13 ity of 00:00: [place] 00 Medical Branch Allergies, Adverse Reactions, Alerts This patient has no known allergies or adverse reactions. Social History Social Habit Start Date Stop Date Quantity Comments Source Sex Assigned At [facility] Medical Branch Tobacco use and 2018-08-29 2018-08-29 [facility] [place] exposure 00:00:00 00:00:00 Medical Branch Smoking Status Start Date Stop Date Source Never smoker [facility] Medical Branch Medications Ordered Filled Start Stop Current Ordering Indication Dosage Frequency Signature Comments Components Source Medication Medication Date Date Medication? Clinician (SIG) Name Name TOPIRAMATE 2019-07 Yes [id number] TAKE 1 [facility] 50 mg 0-08 TABLET BY ity of tablet 00:00: MOUTH [place] 00 TWICE A Medical DAY Branch TOPIRAMATE 2019-07 Yes [id number] TAKE 1 [facility] 50 mg 0-08 TABLET BY ity of tablet 00:00: MOUTH [place] 00 TWICE A Medical DAY Branch TOPIRAMATE 2019-07 Yes [id number] TAKE 1 [facility] 50 mg 0-08 TABLET BY ity of tablet 00:00: MOUTH [place] 00 TWICE A Medical DAY Branch TOPIRAMATE 2019-07 Yes [id number] TAKE 1 [facility] 50 mg 0-08 TABLET BY ity of tablet 00:00: MOUTH [place] 00 TWICE A Medical DAY Branch TOPIRAMATE 0 Yes [id number] TAKE 1 [facility] 50 mg 7-30 TABLET BY ity of tablet 00:00: MOUTH [place] 00 TWICE A Medical DAY Branch TOPIRAMATE Yes [id number] TAKE 1 [facility] 50 mg 7-30 TABLET BY ity of tablet 00:00: MOUTH [place] 00 TWICE A Medical DAY Branch TOPIRAMATE 2020-0 2020- No [id number] TAKE 1 [facility] 50 mg 7-30 10-08 TABLET BY ity of tablet 00:00: 00:00 MOUTH [place] 00 :00 TWICE A Medical DAY Branch TOPIRAMATE 2020-0 Yes [id number] TAKE 1 [facility] 50 mg 5-12 TABLET BY ity of tablet 00:00: [facility] 00 TWICE A Medical DAY Branch TOPIRAMATE 2020-0 Yes [id number] TAKE 1 [facility] 50 mg 5-12 TABLET BY ity of tablet 00:00: [facility] 00 TWICE A Medical DAY Branch TOPIRAMATE 2020-0 2020- No [id number] TAKE 1 [facility] 50 mg 5-12 07-30 TABLET BY ity of tablet 00:00: 00:00 [facility] 00 :00 TWICE A Medical DAY Branch TOPIRAMATE 2020-0 Yes [id number] TAKE 1 [facility] 50 mg 3-17 TABLET BY ity of tablet 00:00: [facility] 00 TWICE A Medical DAY Branch TOPIRAMATE 2020-0 2020- No [id number] TAKE 1 [facility] 50 mg 3-17 05-12 TABLET BY ity of tablet 00:00: 00:00 [facility] 00 :00 TWICE A Medical DAY Branch TOPIRAMATE 2019-0 Yes [id number] TAKE 1 [facility] 50 mg 9-16 TABLET BY ity of tablet 00:00: [facility] 00 TWICE A Medical DAY Branch TOPIRAMATE 2019-0 2020- No [id number] TAKE 1 [facility] 50 mg 9-16 03-17 TABLET BY ity of tablet 00:00: 00:00 [facility] [place] 00 :00 TWICE A Medical DAY Branch TOPIRAMATE 2019-0 Yes [id number] TAKE 1 Univers 50 mg 8-16 TABLET BY ity of tablet 00:00: [facility] 00 TWICE A Medical DAY Branch TOPIRAMATE 2019-0 2019- No [id number] TAKE 1 [facility] 50 mg 8-16 09-14 TABLET BY ity of tablet 00:00: 00:00 [facility] [place] 00 :00 TWICE A Medical DAY Branch TOPIRAMATE 2019-0 2019- No [id number] TAKE 1 [facility] 50 mg 7-18 08-16 TABLET BY ity of tablet 00:00: 00:00 [facility] [place] 00 :00 TWICE A Medical DAY Branch levETIRAcet 2019-0 Yes 500mg Take 500 U nivers am 500 mg 2-18 mg by ity of tablet 15:56: mouth 2 [place] [address] (two) Medical times Branch daily. simvastatin 2019-0 Yes 5mg Take 5 mg U nivers 5 mg tablet 2-18 by mouth ity of 15:56: at [place] [address] bedtime. Medical Branch levETIRAcet 2019-0 Yes 500mg Take 500 U nivers am 500 mg 2-18 mg by ity of tablet 15:56: mouth 2 [place] [address] (two) Medical times Branch daily. simvastatin 2019-0 Yes 5mg Take 5 mg U nivers 5 mg tablet 2-18 by mouth ity of 15:56: at [place] [address] bedtime. Medical Branch levETIRAcet 2019-0 Yes 500mg Take 500 U nivers am 500 mg 2-18 mg by ity of tablet 15:56: mouth 2 [place] [address] (two) Medical times Branch daily. simvastatin 2019-0 Yes 5mg Take 5 mg U nivers 5 mg tablet 2-18 by mouth ity of 15:56: at [place] [address] bedtime. Medical Branch levETIRAcet 2019-0 Yes 500mg Take 500 U nivers am 500 mg 2-18 mg by ity of tablet 15:56: mouth 2 [place] [address] (two) Medical times Branch daily. simvastatin 2019-0 Yes 5mg Take 5 mg U nivers 5 mg tablet 2-18 by mouth ity of 15:56: at [place] [address] bedtime. Medical Branch simvastatin 2019-0 Yes 5mg Take 5 mg U nivers 5 mg tablet 2-18 by mouth ity of 15:56: at [place] [address] bedtime. Medical Branch levETIRAcet 2019-0 Yes 500mg Take 500 U nivers am 500 mg 2-18 mg by ity of tablet 15:56: mouth 2 [place] [address] (two) Medical times Branch daily. levETIRAcet 2019-0 Yes 500mg Take 500 U nivers am 500 mg 2-18 mg by ity of tablet 15:56: mouth 2 [place] [address] (two) Medical times Branch daily. simvastatin 2019-0 Yes 5mg Take 5 mg U nivers 5 mg tablet 2-18 by mouth ity of 15:56: at [place] [address] bedtime. Medical Branch levETIRAcet 2019-0 Yes 500mg Take 500 U nivers am 500 mg 2-18 mg by ity of tablet 15:56: mouth 2 [place] [address] (two) Medical times Branch daily. simvastatin 2019-0 Yes 5mg Take 5 mg U nivers 5 mg tablet 2-18 by mouth ity of 15:56: at [place] [address] bedtime. Medical Branch levETIRAcet 2019-0 Yes 500mg Take 500 U nivers am 500 mg 2-18 mg by ity of tablet 15:56: mouth 2 [place] [address] (two) Medical times Branch daily. simvastatin 2019-0 Yes 5mg Take 5 mg U nivers 5 mg tablet 2-18 by mouth ity of 15:56: at [place] [address] bedtime. Medical Branch levETIRAcet 2019-0 Yes 500mg Take 500 U nivers am 500 mg 2-18 mg by ity of tablet 15:56: mouth 2 [place] [address] (two) Medical times Branch daily. simvastatin 2019-0 Yes 5mg Take 5 mg U nivers 5 mg tablet 2-18 by mouth ity of 15:56: at [place] [address] bedtime. Medical Branch levETIRAcet 2019-0 Yes 500mg Take 500 U nivers am 500 mg 2-18 mg by ity of tablet 15:56: mouth 2 [place] [address] (two) Medical times Branch daily. simvastatin 2019-0 Yes 5mg Take 5 mg U nivers 5 mg tablet 2-18 by mouth ity of 15:56: at [place] [address] bedtime. Medical Branch levETIRAcet 2019-0 Yes 500mg Take 500 U nivers am 500 mg 2-18 mg by ity of tablet 15:56: mouth 2 [place] [address] (two) Medical times Branch daily. simvastatin 2019-0 Yes 5mg Take 5 mg U nivers 5 mg tablet 2-18 by mouth ity of 15:56: at [place] [address] bedtime. Medical Branch amLODIPine 2019-0 Yes 10mg Take 10 mg U nivers 10 mg 2-18 by mouth ity of tablet 15:56: daily. [place] [address] Medical Branch hydralAZINE 2019-0 Yes 25mg Take 25 mg Univers 25 mg 2-18 by mouth ity of tablet 15:56: every 6 [place] [address] (six) Medical hours. Branch amLODIPine 2019-0 Yes 10mg Take 10 mg U nivers 10 mg 2-18 by mouth ity of tablet 15:56: daily. [place] [address] Medical Branch hydralAZINE 2019-0 Yes 25mg Take 25 mg Univers 25 mg 2-18 by mouth ity of tablet 15:56: every 6 [place] [address] (six) Medical hours. Branch amLODIPine 2019-0 Yes 10mg Take 10 mg U nivers 10 mg 2-18 by mouth ity of tablet 15:56: daily. [address] Branch hydralAZINE 2019-0 Yes 25mg Take 25 mg Univers 25 mg 2-18 by mouth ity of tablet 15:56: every 6 [place] [address] (six) Medical hours. Branch amLODIPine 2019-0 Yes 10mg Take 10 mg U nivers 10 mg 2-18 by mouth ity of tablet 15:56: daily. [address] Branch hydralAZINE 2019-0 Yes 25mg Take 25 mg Univers 25 mg 2-18 by mouth ity of tablet 15:56: every 6 [place] [address] (six) Medical hours. Branch amLODIPine 2019-0 Yes 10mg Take 10 mg U nivers 10 mg 2-18 by mouth ity of tablet 15:56: daily. [address] hydralAZINE 2019-0 Yes 25mg Take 25 mg Univers 25 mg 2-18 by mouth ity of tablet 15:56: every 6 [place] [address] (six) Medical hours. Branch amLODIPine 2019-0 Yes 10mg Take 10 mg U nivers 10 mg 2-18 by mouth ity of tablet 15:56: daily. [address] Branch hydralAZINE 2019-0 Yes 25mg Take 25 mg Univers 25 mg 2-18 by mouth ity of tablet 15:56: every 6 [place] [address] (six) Medical hours. Branch amLODIPine 2019-0 Yes 10mg Take 10 mg U nivers 10 mg 2-18 by mouth ity of tablet 15:56: daily. [address] Branch hydralAZINE 2019-0 Yes 25mg Take 25 mg Univers 25 mg 2-18 by mouth ity of tablet 15:56: every 6 [place] [address] (six) Medical hours. Branch amLODIPine 2019-0 Yes 10mg Take 10 mg U nivers 10 mg 2-18 by mouth ity of tablet 15:56: daily. [address] Branch hydralAZINE 2019-0 Yes 25mg Take 25 mg Univers 25 mg 2-18 by mouth ity of tablet 15:56: every 6 [place] [address] (six) Medical hours. Branch amLODIPine 2019-0 Yes 10mg Take 10 mg U nivers 10 mg 2-18 by mouth ity of tablet 15:56: daily. [address] hydralAZINE 2019-0 Yes 25mg Take 25 mg Univers 25 mg 2-18 by mouth ity of tablet 15:56: every 6 [place] [address] (six) Medical hours. Branch amLODIPine 2019-0 Yes 10mg Take 10 mg U nivers 10 mg 2-18 by mouth ity of tablet 15:56: daily. [address] hydralAZINE 2018-0 Yes 25mg Take 25 mg Univers 25 mg 2-18 by mouth ity of tablet 15:56: every 6 [place] [address] (six) Medical hours. Branch hydralAZINE 0 Yes 25mg Take 25 mg Univers 25 mg 2-18 by mouth ity of tablet 15:56: every 6 [place] [address] (six) Medical hours. Branch amLODIPine 0 Yes 10mg Take 10 mg U nivers 10 mg 2-18 by mouth ity of tablet 15:56: daily. [address] thiamine 0 Yes 100mg Take 1 Tab Un medardo (VITAMIN 2-15 by mouth ity of B1) 100 mg 00:00: daily. [place] tablet [facility] thiamine 0 Yes 100mg Take 1 Tab Un medardo (VITAMIN 2-15 by mouth ity of B1) 100 mg 00:00: daily. [place] tablet [facility] thiamine 2015-0 Yes 100mg Take 1 Tab Un medardo (VITAMIN 2-15 by mouth ity of B1) 100 mg 00:00: daily. [place] tablet [facility] thiamine 0 Yes 100mg Take 1 Tab Un medardo (VITAMIN 2-15 by mouth ity of B1) 100 mg 00:00: daily. [place] tablet [facility] thiamine 2016-0 Yes 100mg Take 1 Tab Un [facility]ardo (VITAMIN 2-15 by mouth ity of B1) 100 mg 00:00: daily. [place] tablet [address] [facility] thiamine 2016-0 Yes 100mg Take 1 Tab Un medardo (VITAMIN 2-15 by mouth ity of B1) 100 mg 00:00: daily. [place] tablet [facility] thiamine 2016-0 Yes 100mg Take 1 Tab Un [facility]ardo (VITAMIN 2-15 by mouth ity of B1) 100 mg 00:00: daily. [place] tablet [address] [facility] thiamine 2016-0 Yes 100mg Take 1 Tab Un medardo (VITAMIN 2-15 by mouth ity of B1) 100 mg 00:00: daily. [place] tablet [facility] thiamine Yes 100mg Take 1 Tab Un medardo (VITAMIN 2-15 by mouth ity of B1) 100 mg 00:00: daily. [place] tablet [facility] thiamine Yes 100mg Take 1 Tab Un medardo (VITAMIN 2-15 by mouth ity of B1) 100 mg 00:00: daily. [place] tablet [facility] thiamine Yes 100mg Take 1 Tab Un medardo (VITAMIN 2-15 by mouth ity of B1) 100 mg 00:00: daily. [place] tablet [facility] foLIC acid Yes 1mg Take 1 Tab U nivers (FOLATE) 1 2-06 by mouth ity o f mg tablet 00:00: daily. [facility] multivitami Yes 1{tbl} Take 1 Tab Univers n tablet 2-06 by mouth ity of 00:00: daily. [facility] foLIC acid Yes 1mg Take 1 Tab U nivers (FOLATE) 1 2-06 by mouth ity o f mg tablet 00:00: daily. [facility] multivitami Yes 1{tbl} Take 1 Tab Univers n tablet 2-06 by mouth ity of 00:00: daily. [place] [facility] foLIC acid Yes 1mg Take 1 Tab U nivers (FOLATE) 1 2-06 by mouth ity o f mg tablet 00:00: daily. [facility] multivitami Yes 1{tbl} Take 1 Tab Univers n tablet 2-06 by mouth ity of 00:00: daily. [facility] foLIC acid Yes 1mg Take 1 Tab U nivers (FOLATE) 1 2-06 by mouth ity o f mg tablet 00:00: daily. [facility] multivitami Yes 1{tbl} Take 1 Tab Univers n tablet 2-06 by mouth ity of 00:00: daily. [place] [facility] foLIC acid Yes 1mg Take 1 Tab U nivers (FOLATE) 1 2-06 by mouth ity o f mg tablet 00:00: daily. [facility] multivitami Yes 1{tbl} Take 1 Tab Univers n tablet 2-06 by mouth ity of 00:00: daily. [facility] foLIC acid Yes 1mg Take 1 Tab U nivers (FOLATE) 1 2-06 by mouth ity o f mg tablet 00:00: daily. [place] [facility] multivitami Yes 1{tbl} Take 1 Tab Univers n tablet 2-06 by mouth ity of 00:00: daily. [place] [facility] foLIC acid Yes 1mg Take 1 Tab U nivers (FOLATE) 1 2-06 by mouth ity o f mg tablet 00:00: daily. [place] [facility] multivitami Yes 1{tbl} Take 1 Tab Univers n tablet 2-06 by mouth ity of 00:00: daily. [place] [facility] foLIC acid Yes 1mg Take 1 Tab U nivers (FOLATE) 1 2-06 by mouth ity o f mg tablet 00:00: daily. [place] [facility] foLIC acid Yes 1mg Take 1 Tab U nivers (FOLATE) 1 2-06 by mouth ity o f mg tablet 00:00: daily. [place] [facility] multivitami Yes 1{tbl} Take 1 Tab Univers n tablet 2-06 by mouth ity of 00:00: daily. [place] [facility] multivitami Yes 1{tbl} Take 1 Tab Univers n tablet 2-06 by mouth ity of 00:00: daily. [place] [facility] foLIC acid Yes 1mg Take 1 Tab U nivers (FOLATE) 1 2-06 by mouth ity o f mg tablet 00:00: daily. [place] [facility] multivitami Yes 1{tbl} Take 1 Tab Univers n tablet 2-06 by mouth ity of 00:00: daily. [place] [facility] foLIC acid Yes 1mg Take 1 Tab U nivers (FOLATE) 1 2-06 by mouth ity o f mg tablet 00:00: daily. [place] [facility] multivitami Yes 1{tbl} Take 1 Tab Univers n tablet 2-06 by mouth ity of 00:00: daily. [address] Procedures This patient has no known procedures. Encounters Start End Encounter Admission Attending Care Care Encounter Source Date/Time Date/Time Type Type Clinicians Facility Department ID 2020-08-12 2020-08-12 STEVE [place] 1.2.840.114 [id number] [facility] 00:00:00 00:00:00 [place] [id number] [facility] [id number] [phone] [place] dic[place] nal 2 [facility] 2020-06-11 2020-06-11 [facility] [id number] Univers 00:00:00 00:00:00 Sang [place] [id number] [facility] [id number] [phone] Tn dicak nal [address] [place] [address] 2020-05-12 2020-05-12 [facility] [id number] Univers 00:00:00 00:00:00 Sang [place] [id number] [facility] [id number] [phone] [facility] nal [address] [place] [address] 2020-04-18 2020-04-18 [facility] 1.2.840.114 [id number] Univers 00:00:00 00:00:00 Sang [place] [id number] [facility] [place] [id number] [phone] Tn dicak nal [address] [place] [address] 2020-03-02 2020-03-02 [facility] [id number] Univers 00:00:00 00:00:00 Sang [place] [id number] [facility] [id number] [phone] Tn dicak nal [address] [place] [address] 2020-02-06 2020-02-06 [facility] [id number] Univers 00:00:00 00:00:00 Sang [place] [id number] [facility] [id number] [phone] Tn dicak nal [address] [place] [address] 2019-12-15 2019-12-15 Rubén Segovia [facility] [id number] [id number] Univers 00:00:00 00:00:00 Sang [place] [id number] [facility] [id number] [phone] [place] [id number] [facility] 2019-11-21 2019-11-21 Rubén Segovia [facility] [id number] Univers 00:00:00 00:00:00 Sang [place] [id number] [facility] [id number] [phone] [address] 2019-09-26 2019-09-26 Rubén Segovia [facility] 1.2.840.114 [id number] Univers 00:00:00 00:00:00 Sang Andrade [place] [id number] [facility]y [place] [id number] [phone] [address] 2019-03-25 2019-03-25 Rubén Segovia [facility] [id number] Univers 00:00:00 00:00:00 Sang [place] [id number] [facility] [id number] [phone] [address] 2019-02-24 2019-02-24 Rubén Segovia [facility] [id number] Univers 00:00:00 00:00:00 Sang [place] [id number] [facility] [id number] [phone] [address] Results This patient has no known results.
[2021-08-20] MEDS ORDERED: NA CHLORIDE 0.9% 1,000 ML ONE ×2 (17:47→23:58)
[2021-08-20 17:54] LABS: Urine Blood Negative (Negative); Urine Glucose Trace (Negative); Urine Protein Negative (Negative); Urine Specific Gravity 1.015 (1.005-1.030); Urine pH 7.5 (5.0-7.0)
--- NOTE | 2021-08-20 18:01 | RAD REPORT ---
EXAM DESCRIPTION: CT - Head Brain Wo Cont - 08/20/2021 5:50 pm CLINICAL HISTORY: WEAKNESS COMPARISON: Head Brain Wo Cont dated 04/25/2019; Head Brain Wo Cont dated 06/12/2017 TECHNIQUE: All CT scans are performed using dose optimization technique as appropriate and may inclu de automated exposure control or mA/KV adjustment according to patient size. FINDINGS: No intracranial hemorrhage, hydrocephalus or extra-axial fluid collection.No areas of brai n edema or evidence of midline shift. Age advanced cerebellar atrophy. Small focus of hypoattenuation in the right basal ganglia is similar to 04/25/2019 and could reflect a dilated perivascular space o r remote lacunar infarct. The paranasal sinuses and mastoids are clear. The calvarium is intact. IMPRESSION: No acute intracranial abnormality.
[2021-08-20 18:22] LABS: Absolute Lymphocytes (CBC) 1.5 K/uL (0.7-4.9); Hematocrit 38.9 % (39.6-49.0); Lymphocytes % 18.5 % (15.3-44.8); MPV 7.6 fL (7.6-11.3); RBC Red Blood Cell Count 3.66 M/uL (4.33-5.43)
[2021-08-20 18:33] LABS: Protime INR 1.13
[2021-08-20 18:55] LABS: ALT/SGPT 49 U/L (12-78); AST/SGOT 43 U/L (15-37); Albumin 2.6 g/dL (3.4-5.0); Alkaline Phosphatase 83 U/L (45-117); BUN Blood Urea Nitrogen 8 mg/dL (7-18); Bicarbonate 29 mmol/L (21-32); Bilirubin Total 1.5 mg/dL (0.2-1.0); Glucose Level 106 mg/dL (74-106); NT PRO-BNP 127 pg/mL (<125); Protein, Total 6.8 g/dL (6.4-8.2); Sodium Level 140 mmol/L (136-145)
--- NOTE | 2021-08-20 18:55 | RAD REPORT ---
EXAM DESCRIPTION: RAD - Chest Single View - 08/20/2021 6:23 pm CLINICAL HISTORY: CHEST PAIN COMPARISON: Chest Single View dated 04/25/2019; Chest Single View dated 06/15/2017; Chest Single View dated 06/12/2017; CHEST SINGLE VIEW dated 08/19/2015 FINDINGS: Lines: None. Lungs: No evidence of edema or pneumonia. Pleural: No significant pleural effusions or pneumothorax. Cardiac: The heart size is within normal limits. Bones: No acute fractures. Other: IMPRESSION: No acute cardiopulmonary disease.
[2021-08-20 18:56] LABS: Potassium 2.5 mmol/L (3.5-5.1)
[2021-08-20] MEDS ORDERED: ASPIRIN 81 MG CHEWABLE TABLET ONE (18:59)
[2021-08-20] MEDS ORDERED: FAMOTIDINE 20 MG/2 ML VIAL IV ONE (18:59)
[2021-08-20] MEDS ORDERED: THIAMINE 200 MG/2 ML INJ ONE ×2 (18:59→23:58)
[2021-08-20] MEDS ORDERED: FOLIC ACID 5 MG/ML VIAL ONE (19:00)
--- NOTE | 2021-08-20 19:22 | ER ---
Nurse's Notes [facility] Name: Von Francis Age: 50 yrs Sex: Male : 1970 Arrival Date: 08/20/2021 Time: 16:04 Bed 15 Private MD: Diagnosis: Weakness;Hypokalemia Presentation: 08/20 16:11 Chief complaint: Pt sister states since Wednesday pt has not been able to care for self; vg1 states 'is usually independent' but Wednesday noticed that wasn't able to stand or any daily living activities. States went to PCP and was told to come to ED. Pt can move extremities but is unable to stand. Coronavirus screen: Vaccine status: Patient reports being unvaccinated. Client denies travel out of the [place] in the last 14 days. Ebola Screen: Patient negative for fever greater than or equal to 101.5 degrees Fahrenheit, and additional compatible Ebola Virus Disease symptoms. Initial Sepsis Screen: Does the patient meet any 2 criteria? HR > 90 bpm. Does the patient have a suspected source of infection? No. Patient's initial sepsis screen is negative. Risk Assessment: Do you want to hurt yourself or someone else? Patient reports no desire to harm self or others. Onset of symptoms was August 17, 2021. 16:11 Method Of Arrival: Wheelchair vg1 16:11 Acuity: WEI 3 vg1 17:26 No acute neurological deficit is noted. ap3 19:05 Pre-hospital glucose is not applicable to this patient. ap3 Triage Assessment: 16:14 The onset of the patients symptoms was August 17, 2021 at 07:00. General: Appears vg1 comfortable, Behavior is calm, cooperative. Pain: Denies pain. Neuro: Level of Consciousness is awake, alert, obeys commands, Oriented to person, place, time, situation, Conveyor Belt Operator are weak on left Moves all extremities. Speech is normal, Facial symmetry appears normal. 19:05 Neuro: Reports weakness in left arm. ap3 Stroke Activation: Symptom onset > 6 hours Physician: Stroke Attending; Name: ; Notified At: ; Arrived At: Physician: Chief Stroke Resident; Name: ; Notified At: ; Arrived At: Physician: Stroke Resident; Name: ; Notified At: ; Arrived At: Physician: ED Attending; Name: ; Notified At: ; Arrived At: Physician: ED Resident; Name: ; Notified At: ; Arrived At: Historical: - Allergies: 16:14 No Known Allergies; vg1 - Home Meds: 16:14 None [Active]; vg1 - PMHx: 16:14 Hypertension; Seizures; Tremors; vg1 - Immunization history:: Client reports having NOT received the Covid vaccine. - Social history:: Smoking status: Patient denies any tobacco usage or history of. Screenin:25 Abuse screen: Denies threats or abuse. Nutritional screening: No deficits noted. ap3 Tuberculosis screening: No symptoms or risk factors identified. Fall Risk No fall in past 12 months (0 pts). Secondary diagnosis (15 points) impaired mobility, No IV (0 pts). Ambulatory Aid- Crutches/Cane/Walker (15 pts). Gait- Weak (10 pts.). Mental Status- Oriented to own ability (0 pts). Total Kemp Fall Scale indicates High Risk Score (45 or more points). Fall prevention measures have been instituted. Side Rails Up X 2 Placed Close to Nursing Station Frequent Obs/Assessments Occuring Family Present and informed to notify staff if the need to leave the bedside As available patient and family educated on Fall Prevention Program and Strategies. Assessment: 17:24 VAN Scoring: Arm Drift: Patients demonstrates NO arm weakness. Patient is VAN Negative. ap3 17:27 General: Appears in no apparent distress. comfortable, Behavior is calm, cooperative, ap3 appropriate for age. Neuro: Level of Consciousness is awake, alert, obeys commands, Oriented to person, place, time, situation, Appropriate for age Weakness in left hand(s) Speech is normal. Respiratory: Airway is patent Respiratory effort is even, unlabored, Respiratory pattern is regular, symmetrical. 19:05 Patient has been NPO before screening. The patient is alert, and able to follow ap3 commands. The patient does not exhibit slurred or garbled speech. The patient is not exhibiting difficulty speaking. The patient does not exhibit difficulty understanding words. The patient is able to swallow own secretions with no drooling or need for suction. Patient tolerated one teaspoon of water. No drooling, immediate coughing, gurgling, or clearing of the throat was noted. The patient tolerated 90mL of water. No drooling, immediate coughing, gurgling, or clearing of the throat was noted. The patient passed the bedside swallow screening. Oral medications may be given as ordered. Contact Physician for further diet orders. Provider notified of bedside swallow screening results: Theodore Gonzalez MD. 19:23 General: The pt's sister, Soumya Corrales's # is [phone], should we need her. . camila 19:58 Reassessment: No changes from previously documented assessment. US is at bedside camila performing the carotid study. 20:45 T-PA (Activase) Screening: Contraindications: Other: Pt is not a candidate. camila 22:21 General: Report called to MARIELA Looney, for bed assignment 225, upstairs. . camila 22:22 General: She will call me back, as she can't take report, just yet. . camila 22:28 General: Report was called and the pt will be taken up angi. . camila Vital Signs: 16:11 BP 157 / 92; Pulse 103; Resp 16; Temp 98.1; Pulse Ox 98% ; Weight 77.11 kg; Height 5 vg1 ft. 8 in. (172.72 cm); Pain 0/10; 19:58 BP 165 / 98; Pulse 73; Resp 16; Pulse Ox 99% on R/A; Pain 0/10; camila 22:18 BP 164 / 94; Pulse 79; Resp 16; Temp 98.5; Pulse Ox 100% on R/A; Pain 0/10; camila 16:11 Body Mass Index 25.85 (77.11 kg, 172.72 cm) vg1 NIH Stroke Scale Scores: 17:24 NIHSS Score: 1 ap3 19:14 NIHSS Score: 0 [facility] [place] ED Course: 16:04 Patient arrived in ED. as 16:14 Triage completed. vg1 16:14 Arm band placed on. vg1 17:09 Theodore Gonzalez MD is Attending Physician. [facility] 17:24 Slime Paris, RN is Primary Nurse. ap3 17:27 Patient has correct armband on for positive identification. Bed in low position. Call ap3 light in reach. Side rails up X2. Adult w/ patient. attorney law clerk on. Pulse ox on. NIBP on. Door closed. Noise minimized. 17:49 CT Head Brain wo Cont In Process Unspecified. EDMS 18:15 Inserted saline lock: 22 gauge in right wrist, using aseptic technique. Blood collected.ap3 18:23 XRAY Chest (1 view) In Process Unspecified. EDMS 19:03 Primary Nurse role handed off by Slime Paris RN mw2 19:21 Jolynn Douglas MD is Hospitalizing Provider. jessie 19:22 Jessenia Perales RN is Primary Nurse. camila 19:27 Phosphorus Sent. camila 19:40 SARS-COV-2 RT PCR (Document "Date of Onset" if Symptomatic) Sent. camila 19:57 SARS-COV-2 RT PCR (Document "Date of Onset" if Symptomatic) Sent. camila 19:59 No provider procedures requiring assistance completed. Inserted saline lock: 20 gauge camila in right antecubital area, using aseptic technique. 20:03 US Carotid Artery Bilateral In Process Unspecified. EDMS 22:21 IV is patent, is intact, camila Administered Medications: 18:15 Drug: NS 0.9% 1000 ml Route: IV; Rate: 1 bolus; Site: right wrist; ap3 19:04 Drug: Thiamine 100 mg Route: IV; Rate: bolus; Site: right hand; ap3 19:04 Drug: Aspirin Chewable Tablet 324 mg Route: PO; ap3 19:04 Drug: Pepcid (famotidine) 20 mg Route: IVP; Site: right hand; ap3 19:05 Drug: foLIC Acid 1 mg Route: IVPB; Site: right hand; ap3 19:15 Drug: Potassium Effervescent Tablet 50 mEq Route: PO; camila 20:41 Follow up: Response: No adverse reaction camila 19:30 Drug: NS 0.9% with KCl 20 mEq/L 1000 ml Route: IV; Rate: 125 ml/hr; Site: right camila antecubital; 20:41 Follow up: Response: No adverse reaction camila 20:45 Drug: Potassium Effervescent Tablet 25 mEq Route: PO; camila 20:45 Follow up: Response: No adverse reaction camila Outcome: 19:22 Decision to Hospitalize by Provider. jessie 20:46 Condition: stable camila 22:19 Admitted to Report called to nurse of 225 camila 22:56 Patient left the ED. camila NIH Stroke Scale - NIH Stroke Score Date: 08/20/2021 Time: 17:24 Total Score = 1 1a. Level of Consciousness (LOC) - 0(Alert) 1b. Level of Consciousness (LOC) (Month \\T\\ Age) - 0(Both) 1c. LOC Commands (Open \\T\\ Closes Eyes/Media Analytics Manager) - 0(Both) 2. Best Gaze (Lateral Gaze Paresis) - 0(Normal) 3. Visual Field Loss - 0(No visual loss) 4. Facial Palsy - 0(Normal) 5a. Left Arm: Motor (10-second hold) - 0(No drift) 5b. Right Arm: Motor (10-second hold) - 0(No drift) 6a. Left Leg: Motor (5-second hold - always test supine) - 0(No drift) 6b. Right Leg: Motor (5-second hold - always test supine) - 0(No drift) 7. Limb Ataxia (finger/nose \\T\\ heel/spring - test with eyes open) - 0(Absent) 8. Sensory Loss (pinprick arms/legs/face) - 1(Mild to moderate loss) 9. Best Language: Aphasia (description/naming/reading) - 0(No aphasia) 10. Dysarthria (speech clarity - read or repeat words) - 0(Normal) 11. Extinction and Inattention (visual/tactile/auditory/spatial/personal) - 0(No abnormality) Initials: ap3 NIH Stroke Scale - NIH Stroke Score Date: 08/20/2021 Time: 19:14 Total Score = 0 1a. Level of Consciousness (LOC) - 0(Alert) 1b. Level of Consciousness (LOC) (Month \\T\\ Age) - 0(Both) 1c. LOC Commands (Open \\T\\ Closes Eyes/Media Analytics Manager) - 0(Both) 2. Best Gaze (Lateral Gaze Paresis) - 0(Normal) 3. Visual Field Loss - 0(No visual loss) 4. Facial Palsy - 0(Normal) 5a. Left Arm: Motor (10-second hold) - 0(No drift) 5b. Right Arm: Motor (10-second hold) - 0(No drift) 6a. Left Leg: Motor (5-second hold - always test supine) - 0(No drift) 6b. Right Leg: Motor (5-second hold - always test supine) - 0(No drift) 7. Limb Ataxia (finger/nose \\T\\ heel/spring - test with eyes open) - 0(Absent) 8. Sensory Loss (pinprick arms/legs/face) - 0(Normal) 9. Best Language: Aphasia (description/naming/reading) - 0(No aphasia) 10. Dysarthria (speech clarity - read or repeat words) - 0(Normal) 11. Extinction and Inattention (visual/tactile/auditory/spatial/personal) - 0(No abnormality) Initials: jessie Signatures: Dispatcher [employer] EDTheodore Burr MD MD cha Martinez, Amelia as Prokisch, Amanda, RN RN ap3 Twila Millard 2 Jonelle Pacheco RN RN vg1 Jessenia Perales RN RN camila Corrections: (The following items were deleted from the chart) 16:16 16:14 Allergies: No Known Allergies; vg1 vg1 16:16 16:14 Home Meds: hydralazine 10 mg Oral tab 1 tab 2 times per day; vg1 vg1 16:16 16:14 Home Meds: amlodipine 10 mg tab 1 tab once daily; vg1 vg1 16:16 16:14 Home Meds: levetiracetam 500 mg Oral tab 1 tab 2 times per day; vg1 vg1 16:16 16:14 Home Meds: spironolactone 25 mg Oral tab 1 tab once daily; vg1 vg1 16:16 16:14 Home Meds: topiramate 50 mg Oral CSpX 1 cap once daily; vg1 vg1 16:17 16:11 Chief complaint: Pt sister since Wednesday pt has not been able to vg1 care for self; states 'is usually independent' but Wednesday noticed that wasn't able to stand or any daily living activities. States went to PCP and was told to come to ED. vg1
--- NOTE | 2021-08-20 19:22 | EDPHYS ---
Physician Documentation [facility] Name: Von Francis Age: 50 yrs Sex: Male : 1970 Arrival Date: 08/20/2021 Time: 16:04 Bed 15 Private MD: ED Physician Theodore Gonzalez HPI: 08/20 19:05 This 50 yrs old Male presents to ER via Wheelchair with complaints of jessie Numbness, Weakness. 19:05 The patient's problem is reported as weakness, in the right upper extremity, in the jessie left upper extremity. Onset: The symptoms/episode began/occurred 4 day(s) ago. Duration: The episode is continuous. Context: the episode(s) was witnessed, by family. The symptoms are alleviated by nothing. The symptoms are aggravated by standing. Associated signs and symptoms: The patient has no apparent associated signs or symptoms. Severity of symptoms: At their worst the symptoms were mild in the emergency department the symptoms are unchanged. Patient's baseline: Neuro: alert and fully oriented. The patient has not experienced similar symptoms in the past. Historical: - Allergies: 16:14 No Known Allergies; vg1 - Home Meds: 16:14 None [Active]; vg1 - PMHx: 16:14 Hypertension; Seizures; Tremors; vg1 - Immunization history:: Client reports having NOT received the Covid vaccine. - Social history:: Smoking status: Patient denies any tobacco usage or history of. ROS: 19:14 Constitutional: Negative for fever, chills, and weight loss, Eyes: Negative for injury, jessie pain, redness, and discharge, ENT: Negative for injury, pain, and discharge, Neck: Negative for injury, pain, and swelling, Cardiovascular: Negative for chest pain, palpitations, and edema, Respiratory: Negative for shortness of breath, cough, wheezing, and pleuritic chest pain, Abdomen/GI: Negative for abdominal pain, nausea, vomiting, diarrhea, and constipation, Back: Negative for injury and pain, : Negative for injury, bleeding, discharge, and swelling, Skin: Negative for injury, rash, and discoloration, Neuro: Negative for headache, weakness, numbness, tingling, and seizure, Psych: Negative for depression, anxiety, suicide ideation, homicidal ideation, and hallucinations, Allergy/Immunology: Negative for hives, rash, and allergies, Endocrine: Negative for neck swelling, polydipsia, polyuria, polyphagia, and marked weight changes, Hematologic/Lymphatic: Negative for swollen nodes, abnormal bleeding, and unusual bruising. 19:14 MS/extremity: Positive for paresthesias, of the right arm, left arm, right leg and left leg. 19:14 Neuro: Positive for weakness, of the right arm, left arm, right leg and left leg. Exam: 19:14 Radiologist reports: [facility] 19:14 Constitutional: This is a well developed, well nourished patient who is awake, alert, and in no acute distress. Head/Face: Normocephalic, atraumatic. Eyes: Pupils equal round and reactive to light, extra-ocular motions intact. Lids and lashes normal. Conjunctiva and sclera are non-icteric and not injected. Cornea within normal limits. Periorbital areas with no swelling, redness, or edema. ENT: Nares patent. No nasal discharge, no septal abnormalities noted. Tympanic membranes are normal and external auditory canals are clear. Oropharynx with no redness, swelling, or masses, exudates, or evidence of obstruction, uvula midline. Mucous membranes moist. Neck: Trachea midline, no thyromegaly or masses palpated, and no cervical lymphadenopathy. Supple, full range of motion without nuchal rigidity, or vertebral point tenderness. No Meningismus. Chest/axilla: Normal chest wall appearance and motion. Nontender with no deformity. No lesions are appreciated. Cardiovascular: Regular rate and rhythm with a normal S1 and S2. No gallops, murmurs, or rubs. Normal PMI, no JVD. No pulse deficits. Respiratory: Lungs have equal breath sounds bilaterally, clear to auscultation and percussion. No rales, rhonchi or wheezes noted. No increased work of breathing, no retractions or nasal flaring. Abdomen/GI: Soft, non-tender, with normal bowel sounds. No distension or tympany. No guarding or rebound. No evidence of tenderness throughout. Back: No spinal tenderness. No costovertebral tenderness. Full range of motion. Male : Normal genitalia with no discharge or lesions. Skin: Warm, dry with normal turgor. Normal color with no rashes, no lesions, and no evidence of cellulitis. MS/ Extremity: Pulses equal, no cyanosis. Neurovascular intact. Full, normal range of motion. Psych: Awake, alert, with orientation to person, place and time. Behavior, mood, and affect are within normal limits. 19:14 Neuro: Orientation: is normal, appropriate for stated age, no acute changes, Mentation: is normal, appropriate for stated age, no acute changes, Memory: is normal, appropriate for stated age, no acute changes, Cranial nerves: grossly normal, is grossly normal based on the patient's age, no acute changes, Cerebellar function: is grossly normal based on the patient's age, Motor: moves all fours, strength is 4/5 in the right arm, left arm, right leg and left leg, Sensation: is normal, no obvious gross deficits, appropriate no acute changes, Gait: not tested. Babinski testing is normal, seizure activity, is not displayed by the patient. 19:23 ECG was reviewed by the Attending Physician. jessie Vital Signs: 16:11 BP 157 / 92; Pulse 103; Resp 16; Temp 98.1; Pulse Ox 98% ; Weight 77.11 kg; Height 5 vg1 ft. 8 in. (172.72 cm); Pain 0/10; 19:58 BP 165 / 98; Pulse 73; Resp 16; Pulse Ox 99% on R/A; Pain 0/10; camila 22:18 BP 164 / 94; Pulse 79; Resp 16; Temp 98.5; Pulse Ox 100% on R/A; Pain 0/10; camila 16:11 Body Mass Index 25.85 (77.11 kg, 172.72 cm) vg1 NIH Stroke Scale Scores: 17:24 NIHSS Score: 1 ap3 19:14 NIHSS Score: 0 jessie MDM: 17:09 Patient medically screened. jessie 19:19 Differential diagnosis: CVA, TIA. Data reviewed: vital signs, nurses notes, lab test jessie result(s), EKG, radiologic studies, CT scan, plain films. Data interpreted: environmental monitoring technician: rate is 103 beats/min, rhythm is regular, Pulse oximetry: on room air is 98 %. Test interpretation: by ED physician or midlevel provider: ECG, plain radiologic studies. Counseling: I had a detailed discussion with the patient and/or guardian regarding: the historical points, exam findings, and any diagnostic results supporting the discharge/admit diagnosis, lab results, radiology results, the need for further work-up and treatment in the hospital. 08/20 17:27 Order name: Basic Metabolic Panel [facility] 08/20 17:27 Order name: CBC with Diff [facility] 08/20 17:27 Order name: LFT's [facility] 08/20 17:27 Order name: Magnesium [facility] 08/20 17:27 Order name: NT PRO-BNP [facility] 08/20 17:27 Order name: PT-INR; Complete Time: 18:36 [facility] 08/20 17:27 Order name: Troponin HS [facility] 08/20 17:27 Order name: XRAY Chest (1 view); Complete Time: 19:00 [facility] 08/20 17:27 Order name: CT Head Brain wo Cont; Complete Time: 18:26 [facility] 08/20 17:31 Order name: Urine Culture [facility] 08/20 17:54 Order name: Urine Dipstick-Ancillary; Complete Time: 18:26 [facility] 08/20 18:55 Order name: Phosphorus [facility] 08/20 19:05 Order name: SARS-COV-2 RT PCR (Document "Date of Onset" if Symptomatic) [facility] 08/20 21:27 Order name: CBC Smear Scan [facility] 08/20 17:27 Order name: EKG; Complete Time: 17:28 [facility] 08/20 17:27 Order name: Cardiac monitoring; Complete Time: 17:39 [facility] 08/20 17:27 Order name: EKG - Nurse/Tech; Complete Time: 19:09 [facility] 08/20 17:27 Order name: IV Saline Lock; Complete Time: 17:39 [facility] 08/20 17:27 Order name: Labs collected and sent; Complete Time: 18:15 [facility] 08/20 17:27 Order name: O2 Per Protocol; Complete Time: 17:39 [facility] 08/20 19:03 Order name: US Carotid Artery Bilateral [facility] 08/20 20:22 Order name: CONS Physician Consult [facility] 08/20 17:27 Order name: O2 Sat Monitoring; Complete Time: 17:39 [facility] 08/20 17:31 Order name: Urine Dipstick-Ancillary (obtain specimen); Complete Time: 17:54 [facility] EC:23 Rate is 71 beats/min. Rhythm is regular. QRS [place] is Normal. AR interval is normal. QRS jessie interval is normal. QT interval is normal. No Q waves. T waves are Normal. ST Segment is depressed in leads II, III, aVF, V3, V4, V5, V6. Clinical impression: Abnormal EKG without significant change, Suggests hypokalemia, and No evidence of ischemia. Interpreted by me. Reviewed by me. Administered Medications: 18:15 Drug: NS 0.9% 1000 ml Route: IV; Rate: 1 bolus; Site: right wrist; ap3 19:04 Drug: Thiamine 100 mg Route: IV; Rate: bolus; Site: right hand; ap3 19:04 Drug: Aspirin Chewable Tablet 324 mg Route: PO; ap3 19:04 Drug: Pepcid (famotidine) 20 mg Route: IVP; Site: right hand; ap3 19:05 Drug: foLIC Acid 1 mg Route: IVPB; Site: right hand; ap3 19:15 Drug: Potassium Effervescent Tablet 50 mEq Route: PO; camila 20:41 Follow up: Response: No adverse reaction camila 19:30 Drug: NS 0.9% with KCl 20 mEq/L 1000 ml Route: IV; Rate: 125 ml/hr; Site: right camila antecubital; 20:41 Follow up: Response: No adverse reaction camila 20:45 Drug: Potassium Effervescent Tablet 25 mEq Route: PO; camila 20:45 Follow up: Response: No adverse reaction camila Disposition Summary: 08/20/21 19:22 Hospitalization Ordered Hospitalization Status: Observation jessie Provider: Jolynn Douglas cha Location: Telemetry/MedSurg (observation) jessie Condition: Stable jessie Problem: new jessie Symptoms: have improved jessie Bed/Room Type: Standard [facility] Room Assignment: 225(08/20/21 21:59) cg Diagnosis - Weakness jessie - Hypokalemia jessie Forms: - Medication Reconciliation Form jessie - SBAR form jessie NIH Stroke Scale - NIH Stroke Score Date: 08/20/2021 Time: 17:24 Total Score = 1 1a. Level of Consciousness (LOC) - 0(Alert) 1b. Level of Consciousness (LOC) (Month \\T\\ Age) - 0(Both) 1c. LOC Commands (Open \\T\\ Closes Eyes/Food Safety Officer) - 0(Both) 2. Best Gaze (Lateral Gaze Paresis) - 0(Normal) 3. Visual Field Loss - 0(No visual loss) 4. Facial Palsy - 0(Normal) 5a. Left Arm: Motor (10-second hold) - 0(No drift) 5b. Right Arm: Motor (10-second hold) - 0(No drift) 6a. Left Leg: Motor (5-second hold - always test supine) - 0(No drift) 6b. Right Leg: Motor (5-second hold - always test supine) - 0(No drift) 7. Limb Ataxia (finger/nose \\T\\ heel/spring - test with eyes open) - 0(Absent) 8. Sensory Loss (pinprick arms/legs/face) - 1(Mild to moderate loss) 9. Best Language: Aphasia (description/naming/reading) - 0(No aphasia) 10. Dysarthria (speech clarity - read or repeat words) - 0(Normal) 11. Extinction and Inattention (visual/tactile/auditory/spatial/personal) - 0(No abnormality) Initials: ap3 NIH Stroke Scale - NIH Stroke Score Date: 08/20/2021 Time: 19:14 Total Score = 0 1a. Level of Consciousness (LOC) - 0(Alert) 1b. Level of Consciousness (LOC) (Month \\T\\ Age) - 0(Both) 1c. LOC Commands (Open \\T\\ Closes Eyes/Food Safety Officer) - 0(Both) 2. Best Gaze (Lateral Gaze Paresis) - 0(Normal) 3. Visual Field Loss - 0(No visual loss) 4. Facial Palsy - 0(Normal) 5a. Left Arm: Motor (10-second hold) - 0(No drift) 5b. Right Arm: Motor (10-second hold) - 0(No drift) 6a. Left Leg: Motor (5-second hold - always test supine) - 0(No drift) 6b. Right Leg: Motor (5-second hold - always test supine) - 0(No drift) 7. Limb Ataxia (finger/nose \\T\\ heel/spring - test with eyes open) - 0(Absent) 8. Sensory Loss (pinprick arms/legs/face) - 0(Normal) 9. Best Language: Aphasia (description/naming/reading) - 0(No aphasia) 10. Dysarthria (speech clarity - read or repeat words) - 0(Normal) 11. Extinction and Inattention (visual/tactile/auditory/spatial/personal) - 0(No abnormality) Initials: jessie Signatures: Dispatcher [employer] EDTheodore Burr MD MD jessie Junior, Ivonne, RN RN cg Jacqueline Lloyd RN RN jl7 Slime Paris RN Jonelle Del Angel RN RN vg1 Jessenia Perales RN RN camila Corrections: (The following items were deleted from the chart) 16:16 16:14 Allergies: No Known Allergies; vg1 vg1 16:16 16:14 Home Meds: hydralazine 10 mg Oral tab 1 tab 2 times per day; vg1 vg1 16:16 16:14 Home Meds: amlodipine 10 mg tab 1 tab once daily; vg1 vg1 16:16 16:14 Home Meds: levetiracetam 500 mg Oral tab 1 tab 2 times per day; vg1 vg1 16:16 16:14 Home Meds: spironolactone 25 mg Oral tab 1 tab once daily; vg1 vg1 16:16 16:14 Home Meds: topiramate 50 mg Oral CSpX 1 cap once daily; vg1 vg1 21:59 19:22 jessie garcia
[2021-08-20] MEDS ORDERED: POTASSIUM 25 MEQ EFFERV TAB ONE (19:28)
[2021-08-20] MEDS ORDERED: NS KCL 20MEQ 1,000 ML IV ONE (19:29)
--- NOTE | 2021-08-20 20:42 | RAD REPORT ---
EXAM DESCRIPTION: US - CP - 08/20/2021 8:03 pm CLINICAL HISTORY: DIZZINESS COMPARISON: Carotid Artery Bilateral dated 04/25/2019 TECHNIQUE: Real-time sonographic evaluation of both carotid systems was performed. Doppler interroga tion was performed with waveform tracing bilaterally. FINDINGS: Normal high resistance waveforms are noted in both external carotid arteries. The common c arotid arteries and internal carotid arteries show normal low resistance waveforms. No significant plaque formation is seen. Peak systolic and end diastolic velocity values and the ICA/ CCA ratios are in the non-hemodynamically significant range. Antegrade flow seen in both vertebral arteries. IMPRESSION: No significant atherosclerotic changes noted. No evidence of a hemodynamically significant stenosis.
--- NOTE | 2021-08-20 20:54 | P.HP ---
Certification for Inpatient Patient admitted to: Observation With expected LOS: <2 Midnights Patient will require the following post-hospital care: None Practitioner: I am a practitioner with admitting privileges, knowledge of patient current condition, hospital course, and medical plan of care. Services: Services provided to patient in accordance with Admission requirements found in Title 42 Section 412.3 of the Code of Federal Regulations Patient History Date of Service: 08/20/21 Reason for admission: weakness, hypokalemia History of Present Illness: Mr. Francis is a 50 yo M with history of HTN, seizures (last seizure 6 years ago), previous alcohol use disorder presents with 4 days of numbness, tingling, and weakness in his upper extremities, worse in left than right. He says he awoke Wednesday with the symptoms. Additionally he could not walk or stand. Symptoms have been constant since onset. Denies falls, seizures, vision changes, speech changes, fatigue, headaches, neck and shoulder pain, vomiting, fever. He does use a walker daily. K 2.5. Received potassium, banana bag, aspirin in the ED. CT head without acute findings. Admitted for observation for MRI brain in the AM. Allergies No Known Allergies Allergy (Verified 04/25/19 21:34) Home Medications: levETIRAcetam [Keppra*] 500 mg PO BID #60 tab 06/20/17 Amlodipine [Norvasc*] 5 mg PO DAILY 04/25/19 Hydralazine [Apresoline*] 10 mg PO TID 04/25/19 Spironolactone 1 tab PO DAILY 04/25/19 Topiramate 1 tab PO BID 04/25/19 Folic Acid 1 mg PO DAILY #30 tablet 04/27/19 Thiamine HCl 100 mg PO DAILY #30 tablet 04/27/19 - Past Medical/Surgical History Diabetic: No -: Seizures (since 1989; last attack was 2014) -: History of alcohol abuse-clean for years -: HTN Past Surgical History: Patient denies surgical history - Family History Family History: Reviewed- Non-Contributory - Family History Mother -: Heart disease, Diabetes, Kidney disease Father -: Other (see notes) Notes: dementia - Social History Smoking Status: Never smoker Alcohol use: No CD- Drugs: No Caffeine use: No Place of Residence: Home Review of Systems 10-point ROS is otherwise unremarkable General: Weakness Eyes: Unremarkable ENT: Unremarkable Respiratory: Unremarkable Cardiovascular: Unremarkable Gastrointestinal: Unremarkable Genitourinary: Unremarkable Musculoskeletal: Unremarkable Integumentary: Unremarkable Neurological: Weakness, Numbness, Incoordination, As per HPI Lymphatics: Unremarkable Physical Examination - Physical Exam General: Alert, In no apparent distress HEENT: Atraumatic, PERRLA, Mucous membr. moist/pink, EOMI, Sclerae nonicteric Neck: Supple, 2+ carotid pulse no bruit, No LAD, Without JVD or thyroid abnormality Respiratory: Clear to auscultation bilaterally, Normal air movement Cardiovascular: Regular rate/rhythm, Normal S1 S2 Gastrointestinal: Normal bowel sounds, No tenderness Musculoskeletal: No tenderness Integumentary: No rashes Neurological: Normal tone, Cranial nerves 3-12 intact, Normal affect, Abnormal speech, Abnormal strength, Abnormal sensation Lymphatics: No axilla or inguinal lymphadenopathy - Studies Laboratory Data (last 24 hrs) 08/20/21 18:11: Phosphorus 2.6 08/20/21 18:11: PT 13.0 H, INR 1.13 08/20/21 18:11: WBC 8.40, Hgb 13.5 L, Hct 38.9 L, Plt Count 360 08/20/21 18:11: Sodium 140, Potassium 2.5 L*, BUN 8, Creatinine 0.78, Glucose 106, Total Bilirubin 1.5 H, AST 43 H, ALT 49, Alkaline Phosphatase 83 Assessment and Plan - Problems (Diagnosis) (1) Weakness Current Visit: Yes Status: Acute (2) Hypokalemia Current Visit: Yes Status: Acute (3) History of seizure Current Visit: Yes Status: Chronic (4) History of alcohol use Current Visit: No Status: Chronic - Plan neurology consulted MRI in the AM potassium replacement protocol continue banana bag lipid profile, B12 and folate levels pending seizure precautions daily ASA, statin PT consulted DVT ppx Discharge Plan: Home Plan to discharge in: 24 Hours - Advance Directives Does patient have a Living Will: No Does patient have a Durable POA for Healthcare: No - Code Status/Comfort Care Code Status Assessed: Yes (full code ) Critical Care: No Time Spent Managing Pts Care (In Minutes): 70
[2021-08-20 21:26] LABS: Blood Morphology Comment NOTED (NOT SEEN); Macrocytosis 1+
[2021-08-20 21:27] LABS: Platelet Estimate ADEQ; White Blood Cell Scan OK (OK)
[2021-08-20 23:05] VITALS: BMI 25.9
[2021-08-20] MEDS ORDERED: ACETAMINOPHEN 500 MG TAB PO PRN (23:26)
[2021-08-20] MEDS ORDERED: ONDANSETRON 4 MG/2 ML VIAL IV PRN (23:26)
[2021-08-20] MEDS ORDERED: ATORVASTATIN 40 MG TAB PO SCH (23:26)
[2021-08-21] MEDS ORDERED: THIAMINE 200 MG/2 ML INJ ONE (00:43)
[2021-08-21] MEDS ORDERED: FOLIC ACID 5 MG/ML VIAL ONE (00:46)
[2021-08-21] MEDS ORDERED: MULTIVITAMINS 10 ML VIAL (INJ) IV ONE (00:53)
[2021-08-21] MEDS: FOLIC ACID 1 MG, MULTIVITAMINS INJ 10 ML, THIAMINE HCL 100 MG in NA CHLORIDE 0.9% 1,000 ML IV SCH ×2 (01:06→09:00)
[2021-08-21] MEDS ORDERED: chlordiazePOXIDE HCl 5 MG CAP PO PRN (05:47)
[2021-08-21 06:17] LABS: Absolute Lymphocytes (CBC) 1.5 K/uL (0.7-4.9); Hematocrit 36.2 % (39.6-49.0); Lymphocytes % 28.7 % (15.3-44.8); MPV 7.8 fL (7.6-11.3); RBC Red Blood Cell Count 3.42 M/uL (4.33-5.43)
[2021-08-21 06:43] LABS: ALT/SGPT 41 U/L (12-78); AST/SGOT 42 U/L (15-37); Alkaline Phosphatase 66 U/L (45-117); BUN Blood Urea Nitrogen 6 mg/dL (7-18); Bicarbonate 30 mmol/L (21-32); Bilirubin Total 1.4 mg/dL (0.2-1.0); Glucose Level 90 mg/dL (74-106); HDL Cholesterol 26 mg/dL (40-60); LDL Cholesterol, Calculated 57 (<130); Protein, Total 5.5 g/dL (6.4-8.2); Sodium Level 142 mmol/L (136-145)
[2021-08-21 06:44] LABS: Potassium 2.5 mmol/L (3.5-5.1)
[2021-08-21] MEDS ORDERED: ENOXAPARIN 40 MG/0.4 ML SQ SCH (09:00)
[2021-08-21] MEDS ORDERED: ASPIRIN EC 81 MG TAB PO SCH (09:00)
--- NOTE | 2021-08-21 10:34 | RAD REPORT ---
EXAM DESCRIPTION: MRI - Brain W/Wo Cont - 08/21/2021 9:43 am CLINICAL HISTORY: weakness Headache, drowsiness, CVA COMPARISON: MRA Head Wo Cont dated 08/21/2021; Brain Wo Cont dated 04/25/2019 TECHNIQUE: Multi-sequence, multiplanar MR imaging of the brain was performed with contrast. FINDINGS: No intracranial hemorrhage, hydrocephalus, or extra-axial fluid collection.Minimal chronic periventricular microvascular ischemia. No edema or shift of midline structures. Prominent vermian a trophy is noted.No intracranial mass. DWI is negative for acute CVA. The midline structures are normally formed. Mastoid air cells and paranasal sinuses are clear. Post-contrast images show no abnormal enhancement to suggest tumor or infection. IMPRESSION: Negative for acute CVA or other acute intracranial process. Quite prominent vermian atrophy is noted.
[2021-08-21] MEDS: POTASSIUM CL 40 MEQ in NA CHLORIDE 0.9% 500 ML IV SCH ×2 (10:36→13:00)
--- NOTE | 2021-08-21 10:36 | RAD REPORT ---
EXAM DESCRIPTION: MRI - MRA Head Wo Cont - 08/21/2021 9:42 am CLINICAL HISTORY: weakness CVA COMPARISON: Head Brain Wo Cont dated 08/20/2021 FINDINGS: 3D noncontrast [id number] MR angiography of the cahto of [place] was performed. No aneurysm, flow-limiting stenosis or vascular malformation is seen. Forward flow seen in codominant vertebral arteries. The visualized dural venous sinuses appear patent. IMPRESSION: No significant flow abnormality of the cahto of [place] is identified.
--- NOTE | 2021-08-21 10:38 | RAD REPORT ---
EXAM DESCRIPTION: MRI - MRA Neck W/Wo Cont - 08/21/2021 9:43 am CLINICAL HISTORY: weakness Headache, drowsiness COMPARISON: Carotid Artery Bilateral dated 08/20/2021; Head Brain Wo Cont dated 08/20/2021 FINDINGS: Contrast enhance 2D [id number] MR angiography of the neck vessels was performed. Left aortic arch is noted. Normal branching pattern of the great vessels is seen. Both common carotid arteries and subclavian arteries are widely patent. No significant carotid stenos is seen. Antegrade flow seen in both vertebral arteries. IMPRESSION: No significant flow abnormality of the neck vessels identified.
[2021-08-21 11:47] LABS: Folic Acid, (Folate) 4.1 ng/mL (3.1-17.5)
[2021-08-21 13:43] VITALS: O2SAT 97
[2021-08-21 16:47] VITALS: BP 162/89; TEMP 98.2
[2021-08-21 16:54] LABS: Magnesium 1.7
--- NOTE | 2021-08-21 17:53 | P.DS ---
Admission Date: 08/20/21 Discharge Date: 08/21/21 Disposition: DC HOME/HOME HEALTH CARE Discharge Condition: FAIR Reason for Admission: weakness, hypokalemia - Problems (1) Hypokalemia Current Visit: Yes Status: Acute (2) Weakness Current Visit: Yes Status: Acute (3) History of seizure Current Visit: Yes Status: Chronic (4) History of alcohol use Current Visit: No Status: Chronic Brief History of Present Illness: Mr. Francis is a 50 yo M with history of HTN, seizures (last seizure 6 years ago), previous alcohol use disorder presents with 4 days of numbness, tingling, and weakness in his upper extremities, worse in left than right. He says he awoke Wednesday with the symptoms. Additionally he could not walk or stand. Symptoms have been constant since onset. Denies falls, seizures, vision changes, speech changes, fatigue, headaches, neck and shoulder pain, vomiting, fever. He does use a walker daily. K 2.5. Received potassium, banana bag, aspirin in the ED. CT head without acute findings. Patient admitted for further evaluation. Hospital Course: Patient placed on observation on the medical floor. Hypokalemia treated with IV potassium replacement. Patient also treated with banana bag. His alcohol level was 14. Patient denied recent alcohol intake. Stated his last drink was about 10 days ago. MRI of the brain negative for acute stroke. MRA of head and neck unremarkable. 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 There is also the possibility of alcohol induced myopathy or progressive alcohol induced neuropathy. Acute CVA has been ruled out. I am told patient prefers to go home then to go to a facility for rehab. He is discharged to home with home health. Vital Signs/Physical Exam: Temp Pulse Resp BP Pulse Ox 98.2 F 72 16 162/89 H 96 08/21/21 16:00 08/21/21 16:00 08/21/21 16:00 08/21/21 16:00 08/21/21 16:00 General: Alert, In no apparent distress HEENT: Mucous membr. moist/pink Neck: JVD not distended Respiratory: Clear to auscultation bilaterally, Normal air movement Cardiovascular: No edema, Regular rate/rhythm, Normal S1 S2 Gastrointestinal: Soft and benign, Non-distended, No tenderness Musculoskeletal: No swelling Integumentary: No rashes Neurological: Other (No focal motor deficit) Laboratory Data at Discharge: WBC 5.20 K/uL (4.3-10.9) D 08/21/21 05:51 Hgb 12.4 g/dL (13.6-17.9) L 08/21/21 05:51 Hct 36.2 % (39.6-49.0) L 08/21/21 05:51 Plt Count 274 K/uL (152-406) D 08/21/21 05:51 PT 13.0 SECONDS (9.5-12.5) H 08/20/21 18:11 INR 1.13 08/20/21 18:11 Sodium 142 mmol/L (136-145) 08/21/21 05:51 Potassium 3.1 mmol/L (3.5-5.1) L 08/21/21 15:34 BUN 6 mg/dL (7-18) L 08/21/21 05:51 Creatinine 0.36 mg/dL (0.55-1.3) L 08/21/21 05:51 Glucose 90 mg/dL (74-106) 08/21/21 05:51 Phosphorus 2.6 mg/dL (2.5-4.9) 08/20/21 18:11 Magnesium 1.7 08/21/21 05:51 Total Bilirubin 1.4 mg/dL (0.2-1.0) H 08/21/21 05:51 AST 42 U/L (15-37) H 08/21/21 05:51 ALT 41 U/L (12-78) 08/21/21 05:51 Alkaline Phosphatase 66 U/L (45-117) 08/21/21 05:51 Triglycerides 91 mg/dL (<150) 08/21/21 05:51 Cholesterol 101 mg/dL (<200) 08/21/21 05:51 HDL Cholesterol 26 mg/dL (40-60) L 08/21/21 05:51 Cholesterol/HDL Ratio 3.88 08/21/21 05:51 Home Medications: Aspirin [Aspirin EC] 81 mg PO DAILY #30 tablet. 08/21/21 Folic Acid 1 mg PO DAILY #30 tablet 08/21/21 Thiamine HCl 100 mg PO DAILY #30 tablet 08/21/21 New Medications: Aspirin [Aspirin EC] 81 mg PO DAILY #30 tablet. Folic Acid 1 mg PO DAILY #30 tablet Thiamine HCl 100 mg PO DAILY #30 tablet Diet: AHA Activity: Fall precautions Followup: LuiOTERMELINDA [Primary Care Provider] -
[2021-08-27 08:32] LABS: Magnesium 1.7
== END 2021-08-21 20:15 | disposition home or self-care (01) ==
LOC: ER 16:01 → ERHOLD 20:22 → 2ND 22:32
PROVIDERS: ADMIT Internal Medicine; ATTEND Internal Medicine
DX: E87.6 Hypokalemia (principal); R53.1 Weakness; I10 Essential (primary) hypertension; R56.9 Unspecified convulsions; F10.10 Alcohol abuse, uncomplicated; Z20.822 Contact with and (suspected) exposure to COVID-19; Z82.49 Family history of ischemic heart disease and other diseases of the circulatory system; Z83.3 Family history of diabetes mellitus
CPT/HCPCS: 87088; 85025 ×2; 87086; 80048; 36415; 80320; 83735 ×2; 84100; 84132 ×2; 85610; 80061; 80076; 84443; 81003; 84484; 84439; 82746; 82607; 80053; 83880; 70450; 71045; 93880; 70553; 70544; 70549; 97112; 97163; 97530; 96375; 96374; 99285; U0003; A9577; J3411; J3480 ×2; J1650; J7040; J7030; G0378 ×3